=== PATIENT | female | born 1965 | race Two or more races ===

== ENCOUNTER 2021-01-24 08:31 | Emergency (ER) | payer OTHER, SELFPAY ==
--- NOTE | ~2021-01-24 | XR_ITS ---
EXAMINATION: XR CHEST CLINICAL INFORMATION: Weakness and chills. COMPARISON: None TECHNIQUE: 2 views of the chest were obtained. FINDINGS: The lungs are well-expanded with patchy opacity lingula consistent with developing infiltrate. Rest of lungs are clear. The heart size and pulmonary vascularity is normal. No gross bony abnormality. XR/XR chest 2V IMPRESSION: Developing infiltrate in the lingula. No acute process seen.
[2021-01-24 08:55] VITALS: BP 119/47; PULSE 93; RESP 16; TEMP 36.6; O2SAT 96; BMI 32.8
--- NOTE | 2021-01-24 09:15 | ED_ITS ---
HPI - General Adult General Chief complaint: General Medical Stated complaint: weakness Time Seen by Provider: 01/24/21 09:01 Source: patient Mode of arrival: ambulatory Limitations: no limitations History of Present Illness HPI narrative: 55-year-old female with a past medical history of hypothyroidism here with complaints of generalized weakness, body aches, chills, headache, nausea x2 weeks. Prior to this her daughter was COVID positive but she has had 3 subsequent tests which have been negative. No vomiting, diarrhea, abdominal pain, shortness of breath or cough Related Data Previous Rx's Medication Instructions Recorded levothyroxine 88 mcg tablet 88 mcg PO DAILY 30 Days #30 tab 06/25/20 ibuprofen 800 mg tablet 800 mg PO TID #90 tab 10/18/20 acetaminophen [Tylenol] 650 mg PO Q6H PRN #30 cap 01/24/21 doxycycline monohydrate 100 mg PO BID 7 Days #14 cap 01/24/21 ibuprofen 600 mg PO Q8H PRN #30 tab 01/24/21 Allergies Allergy/AdvReac Type Severity Reaction Status Date / Time oxybutynin [OXYBUTYNIN] Allergy Severe TACHYCARDIA Unverified 05/19/20 18:22 ,FLUSHING,S OB Review of Systems Review of Systems: Yes all other systems are reviewed and are negative Constitutional: Constitutional: Reports no additional constitutional complaints, Reports body ache(s), Reports chills, Denies fever(s), Reports heada brigitte(s) and Reports weakness Eyes: Eyes: Reports no additional eye complaints and Denies change in vision ENT: Reports system reviewed and no additional complaints, except as documented, Denies dizziness, Reports headache(s), Denies nasal congestion, Denies nasal discharge and Denies neck pain Cardiovascular: Cardiovascular: Reports no additional cardiovascular complaints, Denies chest pain, Denies leg edema and Denies dyspnea Respiratory: Respiratory: Reports no additional respiratory complaints, Denies cough and Denies dyspnea Gastrointestinal: Gastrointestinal: Reports no additional gastrointestinal complaints, Denies abdominal pain, Denies diarrhea, Reports nausea and Denies vomiting Genitourinary: Genitourinary: Reports no additional female genitourinary com plaints and Denies urinary incontinence Musculoskeletal: Musculoskeletal: Reports no additional musculoskeletal complaints, Denies back pain, Denies arthralgias, Denies joint swelling, Denies neck pain, Denies numbness and Denies tingling Integumentary/Breasts: Skin/Breast: Reports system reviewed and no additional complaints, except as docu and Denies rash Neurologic: Reports system reviewed and no additional complaints, except as documented, Denies Abnormal speech present, Denies dizziness, Reports headache(s), Denies numbness, Denies tingling and Reports weakness PMFSH Past Medical History Attestation statement: The following information was validated with the patient. Source: old records reviewed and nursing notes reviewed Medical History Thyroid disease Social History Social History Alcohol intake: never Smoking Status: Never smoker Use of substances other than those prescribed or required for medical reasons: No Advance Directives: No Advance Directives Information Provided: No Patient : No Physical Exam Vital Signs: Vital Signs: Last Vital Signs Temp 97.8 F 01/24/21 08:55 Pulse 85 01/24/21 10:23 Resp 16 01/24/21 08:55 BP 115/58 L 01/24/21 10:23 Pulse Ox 96 01/24/21 08:55 Body Mass Index 32.8 Const: General: cooperative, healthy appearing, comfortable and no acute distress Orientation/consciousness: patient oriented x3 Limitations: no l imitations HENMT: Head: Yes normal to inspection Ears: hearing grossly normal bilaterally General nose exam: Normal external nose present Face and sinus: Yes normal facial exam Mouth: Normal oral and palatal mucosa present Throat: Yes posterior oropharynx normal Eyes: General: appearance normal, both eyes and all related structures Pupils: Equal, round and reactive pupils present Neck: Neck: Yes normal visual inspection Chest: Chest palpation & inspection: normal inspection of the chest Resp: Effort & Inspection: normal respiratory effort Auscultation: clear to auscultation bilaterally Cardio: Rate: regular rate Rhythm: regular rhythm Peripheral pulses: Peripheral pulses 2+ throughout GI: Inspection: Yes normal to inspection Palpation (GI): Soft to palpation and nontender Auscultation: normal bowel sounds Back/Spine/Pelvis: Thoracic/Lumbar Spine: thoracic and lumbar spine normal to inspection Skin: General skin exam: no rashes or lesions noted Neuro: General: patient oriented x3, no focal motor deficits and normal sensation to monofilament Cranial nerves: Yes Equal, round and reactive pupils present Cognition (Neuro): normal cognition Speech: No Abnormal speech present Gait exam (Neuro): Normal gait present Motor exam (neuro): 5/5 motor strength present throughout Extrem: General: Yes normal to inspection, Yes no pedal edema and Yes no calf tenderness Course Course Course Narrative: 55-year-old female here with complaints of generalized weakness, body aches, chills, headache, nausea x2 weeks. Multiple COVID test which were negative. Daughter at home did have COVID. Will need COVID screen, labs, chest x-ray, UA 1200-labs show mild leukopenia. Chest x-ray consistent with a infiltrate. All other labs, COVID screen and urine negative. Patient has no shortness of breath or chest pain. She has an oxygen saturation greater than 98%. Will send home with course of antibiotics. Reviewed worrisome signs and symptoms of when to return to the emergency department. Comfortable discharge home. We discussed repeat CBC by her primary care doctor in a few weeks Medical Decision Making MDM Narrative Medical decision making narrative: Pneumonia, UTI, viral syndrome, COVID-19 infection Medical Records Medical records reviewed: Yes I reviewed the patient's medical records. Lab Data Lab results reviewed: Yes I reviewed the patient's lab results. Result diagrams: 01/24/21 09:45 01/24/21 09:45 Labs: Lab Results 01/24/21 01/24/21 01/24/21 Range/Units 09:15 09:45 09:45 WBC 3.8 L (4.8-10.8) X10*3/uL RBC 4.21 (4.20-5.50) X10*6/uL Hgb 11.3 L (12.0-16.0) g/dl Hct 36.2 L (37-47) % MCV 86.0 (80-98) fL MCH 26.8 L (27.0-33.0) pg MCHC 31.2 (31.0-35.0) g/dl RDW 13.3 (11.0-16.0) % Plt Count 196 (160-400) X10*3/uL MPV 10.0 (9.4-12.3) fL Immature Gran % (Auto) 0.3 (0.0-0.4) % Neut % (Auto) 57.3 (45-73) % Lymph % (Auto) 30.8 (20-40) % [place] % (Auto) 11.1 H (2-11) % Eos % (Auto) 0.0 (0-4) % Baso % (Auto) 0.5 (0-2) % Lymph # (Auto) 1.2 (1.2-4.9) X10*3/uL [place] # (Auto) 0.4 (0.1-1.2) X10*3/uL Eos # (Auto) 0.0 (0.0-0.4) X10*3/uL Baso # (Auto) 0.0 (0.0-0.2) X10*3/uL Abs Immat Gran (auto) 0.01 (0.00-0.03) X10*3/uL Absolute Neuts (auto) 2.2 (2.0-8.3) X10*3/uL Absolute Nucleated RBC 0.000 (0.0-0.012) X10*3/uL Nucleated RBC % (auto) 0.0 (0.0-0.2) /100WBC Sodium 135 (135-145) mmol/L Potassium 3.7 (3.3-5.1) mmol/L Chloride 101 (96-108) mmol/L Carbon Dioxide 26 (22-29) mmol/L Anion Gap 12 (12-20) BUN 15 (9-16) mg/dL Creatinine 0.71 (0.5-1.4) mg/dL Estim Creat Clear Calc 92.9 Estimated GFR > 60 Random Glucose 98 (60-115) mg/dL Calcium 8.7 (8.4-10.2) mg/dL Magnesium 2.0 (1.6-2.6) mg/dL Total Bilirubin 0.7 (0.0-1.0) mg/dL Direct Bilirubin 0.2 (0.0-0.5) mg/dL AST 38 H (5-31) U/L ALT 41 H (0-31) U/L Alkaline Phosphatase 80 (39-117) U/L Total Creatine Kinase 193 H (26-140) U/L Total Protein 7.1 (6.5-8.0) g/dL Albumin 3.9 (3.5-5.0) g/dL Urine Color Urine Appearance Urine pH (5.0-8.0) Ur Specific [place] (1.005-1.025) Urine Protein (NEG-TRACE) MG/DL Urine Glucose (UA) (NEG) MG/DL Urine Ketones (NEG) MG/DL Urine Blood (NEG) Urine Nitrite (NEG) Ur Leukocyte Esterase (NEG) COVID-19 (SERGIO) Negative (Negative) COVID-19 Clin Com See Note 01/24/21 Range/Units 11:29 WBC (4.8-10.8) X10*3/uL RBC (4.20-5.50) X10*6/uL Hgb (12.0-16.0) g/dl Hct (37-47) % MCV (80-98) fL MCH (27.0-33.0) pg MCHC (31.0-35.0) g/dl RDW (11.0-16.0) % Plt Count (160-400) X10*3/uL MPV (9.4-12.3) fL Immature Gran % (Auto) (0.0-0.4) % Neut % (Auto) (45-73) % Lymph % (Auto) (20-40) % [place] % (Auto) (2-11) % Eos % (Auto) (0-4) % Baso % (Auto) (0-2) % Lymph # (Auto) (1.2-4.9) X10*3/uL [place] # (Auto) (0.1-1.2) X10*3/uL Eos # (Auto) (0.0-0.4) X10*3/uL Baso # (Auto) (0.0-0.2) X10*3/uL Abs Immat Gran (auto) (0.00-0.03) X10*3/uL Absolute Neuts (auto) (2.0-8.3) X10*3/uL Absolute Nucleated RBC (0.0-0.012) X10*3/uL Nucleated RBC % (auto) (0.0-0.2) /100WBC Sodium (135-145) mmol/L Potassium (3.3-5.1) mmol/L Chloride (96-108) mmol/L Carbon Dioxide (22-29) mmol/L Anion Gap (12-20) BUN (9-16) mg/dL Creatinine (0.5-1.4) mg/dL Estim Creat Clear Calc Estimated GFR Random Glucose (60-115) mg/dL Calcium (8.4-10.2) mg/dL Magnesium (1.6-2.6) mg/dL Total Bilirubin (0.0-1.0) mg/dL Direct Bilirubin (0.0-0.5) mg/dL AST (5-31) U/L ALT (0-31) U/L Alkaline Phosphatase (39-117) U/L Total Creatine Kinase (26-140) U/L Total Protein (6.5-8.0) g/dL Albumin (3.5-5.0) g/dL Urine Color YELLOW Urine Appearance CLEAR Urine pH 6.0 (5.0-8.0) Ur Specific [place] 1.025 (1.005-1.025) Urine Protein NEG (NEG-TRACE) MG/DL Urine Glucose (UA) NEG (NEG) MG/DL Urine Ketones 40 (NEG) MG/DL Urine Blood NEG (NEG) Urine Nitrite NEG (NEG) Ur Leukocyte Esterase NEG (NEG) COVID-19 (SERGIO) (Negative) COVID-19 Clin Com Imaging Data Chest x-ray: Attestation: I personally reviewed and interpreted this imaging study as follows: Radiologist's impression: EXAMINATION: XR CHEST CLINICAL INFORMATION: Weakness and chills. COMPARISON: None TECHNIQUE: 2 views of the chest were obtained. FINDINGS: The lungs are well-expanded with patchy opacity lingula consistent with developing infiltrate. Rest of lungs are clear. The heart size and pulmonary vascularity is normal. No gross bony abnormality. XR/XR chest 2V IMPRESSION: Developing infiltrate in the lingula. No acute process seen. Discharge Plan Discharge Clinical Impression: Pneumonia Patient Disposition: Home, Self-Care Instructions: Bacterial Pneumonia (ED) Additional Instructions: Increase fluids, rest Your white blood cell count was mildly decreased today. Get it rechecked by her primary care doctor in a few weeks Prescriptions: New doxycycline monohydrate 100 mg capsule 100 mg PO BID 7 Days Qty: 14 RF: 0 acetaminophen [Tylenol] 325 mg capsule 650 mg PO Q6H PRN (Reason: fever or pain) Qty: 30 RF: 0 ibuprofen 600 mg tablet 600 mg PO Q8H PRN (Reason: fever or pain) Qty: 30 RF: 0 No Action levothyroxine 88 mcg tablet 88 mcg PO DAILY 30 Days Qty: 30 RF: 6 ibuprofen 800 mg tablet 800 mg PO TID Qty: 90 RF: 3 Referrals: Flori Mejia MD [Primary Care Provider] - 2 days Interventions: ED Discharge Assessment Last Done: 01/24/21 11:50 Discharge Date/Time: 01/24/21 11:51 Print Language: Upper Sorbian
[2021-01-24 09:36] LABS: COVID-19 Test Negative (Negative)
[2021-01-24 09:56] LABS: MANUAL DIFF FLAG NO
[2021-01-24 10:01] LABS: Basophils Percent Auto 0.5 % (0-2); Hematocrit 36.2 % (37-47); Hemoglobin 11.3 g/dl (12.0-16.0); Imm Gran Abs Auto 0.01 X10*3/uL (0.00-0.03); Imm Gran Pct Auto 0.3 % (0.0-0.4); Lymphocytes Absolute Auto 1.2 X10*3/uL (1.2-4.9); Lymphocytes Percent Auto 30.8 % (20-40); Mean Corpuscular HGB Conc 31.2 g/dl (31.0-35.0); Mean Corpuscular Hemoglobin 26.8 pg (27.0-33.0); Monocytes Absolute Auto 0.4 X10*3/uL (0.1-1.2); Monocytes Percent Auto 11.1 % (2-11); Neutrophils Absolute Auto 2.2 X10*3/uL (2.0-8.3); Neutrophils Percent Auto 57.3 % (45-73); Platelet Count 196 X10*3/uL (160-400); Red Blood Count 4.21 X10*6/uL (4.20-5.50); Red Cell Distribution Width 13.3 % (11.0-16.0); White Blood Count 3.8 X10*3/uL (4.8-10.8)
[2021-01-24 10:22] VITALS: BP 105/65; BP 108/60; PULSE 75; PULSE 78
[2021-01-24 10:23] VITALS: BP 115/58; PULSE 85
[2021-01-24 10:33] LABS: Alanine Aminotransferase 41 U/L (0-31); Albumin Level 3.9 g/dL (3.5-5.0); Alkaline Phosphatase 80 U/L (39-117); Anion Gap 12 (12-20); Aspartate Amino Transferase 38 U/L (5-31); Bilirubin Direct 0.2 mg/dL (0.0-0.5); Bilirubin Total 0.7 mg/dL (0.0-1.0); Blood Urea Nitrogen 15 mg/dL (9-16); Calcium 8.7 mg/dL (8.4-10.2); Carbon Dioxide 26 mmol/L (22-29); Chloride 101 mmol/L (96-108); Creatinine Clr Calc Pharmacy 92.9; Estimated Glomerular Filt Rate > 60; Glucose Random 98 mg/dL (60-115); Potassium 3.7 mmol/L (3.3-5.1); Sodium 135 mmol/L (135-145); Total Protein 7.1 g/dL (6.5-8.0)
[2021-01-24 11:37] LABS: Appearance Urine CLEAR; Color Urine YELLOW; Glucose Urine UA NEG (NEG); Leukocyte Esterase Urine NEG (NEG); Nitrite Urine NEG (NEG); Specific Gravity - Urine 1.025 (1.005-1.025); Urine Blood NEG (NEG); Urine Ketones 40 MG/DL (NEG); Urine Protein NEG (NEG-TRACE)
== END 2021-01-24 11:51 | disposition home or self-care (01) ==
PROVIDERS: Nurse Practitioner Family; Emergency Provider Emergency Medicine; PCP Internal Medicine
DX: J18.9 Pneumonia, unspecified organism (principal); R53.1 Weakness; Z20.822 Contact with and (suspected) exposure to COVID-19
CPT/HCPCS: 36415; 71046; 80048; 80076; 81003; 82550; 83735; 85025; 87635; 99284

== ENCOUNTER 2021-01-26 21:50 | Emergency (ER) | payer OTHER, SELFPAY ==
[2021-01-26 21:56] VITALS: BP 112/49; PULSE 77; RESP 18; TEMP 36.7; O2SAT 96; BMI 24.4
--- NOTE | 2021-01-26 23:21 | ED.NAVMDI ---
HPI - Nausea/Vomiting/Diarrhea General Chief complaint: Nausea/Vomiting/Diarrhea Stated complaint: nausea Time Seen by Provider: 01/26/21 23:20 Source: patient Mode of arrival: ambulatory Limitations: no limitations History of Present Illness HPI Narrative: Patient was seen here 3 days ago and diagnosed with early pneumonia and started on doxycycline since then she complaining of stomach upset and vomiting also complaining of headache no fever still coughing a lot no shortness of breath Related Data Previous Rx's Medication Instructions Recorded ibuprofen 800 mg tablet 800 mg PO TID #90 tab 10/18/20 acetaminophen [Tylenol] 650 mg PO Q6H PRN #30 cap 01/24/21 doxycycline monohydrate 100 mg PO BID 7 Days #14 cap 01/24/21 ibuprofen 600 mg PO Q8H PRN #30 tab 01/24/21 amoxicillin-pot clavulanate 1 tab PO BID #20 tab 01/27/21 [Augmentin] codeine-guaifenesin 10 ml PO Q4-6H PRN #120 ml 01/27/21 ondansetron 4 mg PO Q6-8H PRN #10 tab 01/27/21 levothyroxine 88 mcg tablet 88 mcg PO DAILY 30 Days #30 tab 02/02/21 Allergies Allergy/AdvReac Type Severity Reaction Status Date / Time oxybutynin [OXYBUTYNIN] Allergy Severe TACHYCARDIA Verified 01/26/21 21:56 ,FLUSHING,S OB Review of Systems Review of Systems: Constitutional : No Weight loss, No Fever, No Chills ENT/Mouth : No sore throat, No Rhinorrhea Eyes: No Eye Pain, No Swelling Cardiovascular : No Chest Pain, no palpitations Respiratory :+ Cough, No Sputum, no shortness of breath Gastrointestinal : + Nausea, +Vomiting, No Diarrhea, No abdominal Pain, no black stools Genitourinary : No Dysuria, No Urinary Frequency Musculoskeletal : No joint pain, No Myalgias, No Joint Swelling Skin : No Skin Lesions, No rash Neuro : No Weakness, No Numbness, No Dizziness, No Headache Psych : No Anxiety/Panic, No Depression Heme/Lymph: No Bruising, No Lymphadenopathy Endocrine : No Polyuria, No Polydipsia All other systems reviewed and are negative PMFSH Past Medical History Medical History Thyroid disease Social History Social History Alcohol intake: never Advance Directives: No Advance Directives Information Provided: No Patient : No Physical Exam Vital Signs: Vital Signs: Last Vital Signs Temp 98.0 F 01/26/21 21:56 Pulse 66 01/26/21 23:55 Resp 20 01/26/21 23:55 BP 107/62 01/26/21 23:55 Pulse Ox 95 01/26/21 23:55 Body Mass Index 24.4 Appearance: Alert. Oriented X3. No acute distress. Eyes: PERRLA, No Nystagmus ENT: Pharynx normal. Oral Mucosa moist Neck: Normal inspection. Neck supple. CVS: Normal heart rate and rhythm. Pulses normal. Respiratory: No respiratory distress. Equal air entry bilateral, no wheezing/rales/rhonchi Abdomen: Soft and nontender. Bowel sounds are present, no mass palpable, no CVA tenderness Skin: Skin warm and dry. Normal skin color. Normal skin turgor. Extremities: No lower extremity edema. No calf tenderness Neuro: Oriented X 3. No motor deficit. No sensory deficit MDM - Nausea/Vomiting/Diarrhea MDM Narrative Medical decision making narrative: Patient's symptoms likely from doxycycline will change to Augmentin Discharge Plan Discharge Clinical Impression: Acute bronchitis Qualifiers: Bronchitis organism: unspecified organism Qualified Code(s): J20.9 - Acute bronchitis, unspecified Vomiting Qualifiers: Vomiting type: unspecified Vomiting Intractability: non-intractable Nausea presence: with nausea Qualified Code(s): R11.2 - Nausea with vomiting, unspecified Patient Disposition: Home, Self-Care Instructions: Acute Bronchitis (ED), Acute Nausea and Vomiting (ED) Additional Instructions: Take medication as advised for the nausea, stop doxycycline and that may be contributing to vomiting start Augmentin as prescribed and use inhaler 2-4 puffs every 6 hours as needed for increased cough Cough syrup as advised Prescriptions: New ondansetron 4 mg tablet,disintegrating 4 mg PO Q6-8H PRN (Reason: Vomiting) Qty: 10 RF: 0 amoxicillin-pot clavulanate [Augmentin] 875-125 mg tablet 1 tab PO BID Qty: 20 RF: 0 codeine-guaifenesin 10-100 mg/5 mL liquid 10 ml PO Q4-6H PRN (Reason: cough) Qty: 120 RF: 0 No Action ibuprofen 800 mg tablet 800 mg PO TID Qty: 90 RF: 3 levothyroxine 88 mcg tablet 88 mcg PO DAILY 30 Days Qty: 30 RF: 6 doxycycline monohydrate 100 mg capsule 100 mg PO BID 7 Days Qty: 14 RF: 0 acetaminophen [Tylenol] 325 mg capsule 650 mg PO Q6H PRN (Reason: fever or pain) Qty: 30 RF: 0 ibuprofen 600 mg tablet 600 mg PO Q8H PRN (Reason: fever or pain) Qty: 30 RF: 0 Stand Alone Forms: Work/School Release Interventions: ED Discharge Assessment Last Done: 01/27/21 00:23 Discharge Date/Time: 01/27/21 00:23
[2021-01-26] MEDS: Albuterol Sulfate 90 MCG 8 GM INHALER 4 PUFF INHALE (23:50)
[2021-01-26] MEDS: Amoxicillin/Potassium Clav 875 MG TABLET PO (23:51)
[2021-01-26 23:55] VITALS: BP 107/62; PULSE 66; RESP 20; O2SAT 95
== END 2021-01-27 00:23 | disposition home or self-care (01) ==
PROVIDERS: Emergency Provider Internal Medicine; PCP Internal Medicine
DX: R11.0 Nausea (principal)
CPT/HCPCS: 99284

== ENCOUNTER 2021-10-11 09:28 | Outpatient (REF) | payer OTHER, SELFPAY ==
[2021-10-11 10:01] LABS: MANUAL DIFF FLAG NO
[2021-10-11 10:26] LABS: Basophils Percent Auto 0.5 % (0-2); Eosinophils Absolute Auto 0.1 X10*3/uL (0.0-0.4); Eosinophils Percent Auto 1.9 % (0-4); Hemoglobin 12.3 g/dl (12.0-16.0); Imm Gran Abs Auto 0.01 X10*3/uL (0.00-0.03); Imm Gran Pct Auto 0.2 % (0.0-0.4); Lymphocytes Absolute Auto 2.4 X10*3/uL (1.2-4.9); Lymphocytes Percent Auto 37.7 % (20-40); Mean Corpuscular HGB Conc 30.8 g/dl (31.0-35.0); Mean Corpuscular Hemoglobin 26.6 pg (27.0-33.0); Mean Corpuscular Volume 86.4 fL (80.0-98.0); Mean Platelet Volume 10.1 fL (9.4-12.3); Monocytes Absolute Auto 0.7 X10*3/uL (0.1-1.2); Monocytes Percent Auto 10.1 % (2-11); Neutrophils Absolute Auto 3.2 x10*3/uL (2.0-8.3); Neutrophils Percent Auto 49.6 % (45-73); Platelet Count 336 X10*3/uL (160-400); Red Blood Count 4.63 X10*6/uL (4.20-5.50); Red Cell Distribution Width 13.5 % (11.0-16.0); White Blood Count 6.4 X10*3/uL (4.8-10.8)
[2021-10-11 13:09] LABS: TSH reflex Free T4 0.21 uIU/mL (0.32-4.0)
[2021-10-11 13:23] LABS: Alanine Aminotransferase 32 U/L (0-31); Albumin Level 4.1 g/dL (3.5-5.0); Alkaline Phosphatase 94 U/L (39-117); Anion Gap 12 (12-20); Aspartate Amino Transferase 30 U/L (5-31); Bilirubin Total 0.8 mg/dL (0.0-1.0); Carbon Dioxide 26 mmol/L (22-29); Chloride 108 mmol/L (96-108); Cholesterol 264 mg/dL; Estimated Glomerular Filt Rate > 60; Glucose Fasting 94 mg/dL (60-99); HDL Cholesterol 44 mg/dL; LDL Cholesterol Calculated 168 mg/dl; Potassium 4.6 mmol/L (3.3-5.1); Sodium 141 mmol/L (135-145); Total Protein 7.7 g/dL (6.5-8.0); Triglycerides 264 mg/dL
[2021-10-11 15:25] LABS: Estimated Average Glucose 120 mg/dL; Hemoglobin A1c % 5.8 %
[2021-10-11 15:36] LABS: Blood Urea Nitrogen 16 mg/dL (9-16); Calcium 10.3 mg/dL (8.4-10.2)
[2021-10-11 15:48] LABS: Free T4 (Free Thyroxine) 1.14 ng/dL (0.71-1.85)
[2021-10-11 23:26] LABS: Folate 17.8 ng/mL (> or = 4.0); Vitamin B12 962 pg/mL (200-900)
[2021-10-17 12:26] LABS: Vitamin D 25-OH, D2 6 ng/mL; Vitamin D 25-OH, D3 24 ng/mL; Vitamin D 25-OH, Total 30 ng/mL (30-100)
== END 2021-10-11 09:29 | disposition home or self-care (01) ==
LOC: HO.LAB 09:28
PROVIDERS: PCP Internal Medicine; Visit Provider Nurse Practitioner Acute Care
DX: E03.9 Hypothyroidism, unspecified (principal)
CPT/HCPCS: 36415; 80053; 80061; 82306; 82607; 82746; 83036; 84439; 84443; 85025

== ENCOUNTER → 2021-10-17 13:42 | Outpatient (BNVA) | payer OTHER, SELFPAY | PROVIDERS: PCP Internal Medicine; Visit Provider Orthopaedic Surgery | DX: M65.311 Trigger thumb, right thumb (principal) | CPT/HCPCS: 20550; 99202; J1100 ==

== ENCOUNTER 2023-08-06 12:40 | Emergency (ER) | payer SELFPAY ==
--- NOTE | ~2023-08-06 | XR_ITS ---
EXAMINATION: XR KNEE, LEFT CLINICAL INFORMATION: Anterior knee pain COMPARISON: None available. TECHNIQUE: Four views of the left knee. FINDINGS: No fracture or joint effusion. Alignment is anatomic. Joint spaces are maintained. No abnormal soft tissue calcification. XR/XR knee LT 3V IMPRESSION: Normal left knee.
--- NOTE | 2023-08-06 13:40 | ED.GENADULT ---
HPI - General Adult General Chief complaint: Extremity Injury, Lower Stated complaint: L knee pain Time Seen by Provider: 08/06/23 20:11 Source: patient Mode of arrival: ambulatory Limitations: no limitations History of Present Illness HPI narrative: Patient is a 58-year-old female who presents emergency department for evaluation of acute on chronic left knee pain. Progressively worsening over the past 2 days about any obvious injury. Described as an aching pain with intermittent burning sensation. Denies any redness or swelling. Denies numbness or tingling to the lower extremity. No calf pain. No personal history of DVT/PE. She typically takes ibuprofen 100 mg orally for her bilateral knee pain. She did not take this today. Related Data Previous Rx's Medication Instructions Recorded acetaminophen 325 mg capsule 650 mg (2 x 325 mg) PO Q6H PRN 01/24/21 (Tylenol) fever or pain #30 caps ibuprofen 600 mg tablet 600 mg PO Q8H PRN fever or pain 01/24/21 #30 tabs ondansetron 4 mg disintegrating 4 mg PO Q6-8H PRN Vomiting #10 tabs 01/27/21 tablet dexamethasone 4 mg tablet 4 mg PO .COMPLEX #18 tabs 05/19/21 butalbital 50 mg-acetaminophen 300 1 cap PO .6H PRN pain #10 caps 09/26/21 mg-caffeine 40 mg-codeine 30 mg cap (Fioricet with Codeine) hydroxyzine HCl 25 mg tablet 25 mg PO TID PRN anxiety #21 tabs 09/26/21 ibuprofen 800 mg tablet 800 mg PO TID #90 tabs 02/10/23 levothyroxine 88 mcg tablet 88 mcg PO DAILY 30 days #30 tabs 07/26/23 Allergies Allergy/AdvReac Type Severity Reaction Status Date / Time oxybutynin [OXYBUTYNIN] Allergy Severe TACHYCARDIA Verified 10/17/21 13:56 ,FLUSHING,S OB Review of Systems Review of Systems: Yes all other systems are reviewed and are negative PMFSH Past Medical History Attestation statement: The following information was validated with the patient. Source: old records reviewed Medical History Thyroid disease Social History Social History Housing: Apartment Alcohol intake: never Patient Tobacco Use Status: Never used Tobacco Second Hand Smoke Exposure: No Advance Directives: No Advance Directives Information Provided: No service: No Current occupational status: employed 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rt hand Physical Exam ED Vital Signs: Vital Signs - 24 hr 08/06/23 13:42 Temperature 97.9 F Pulse Rate 85 Respiratory Rate 18 Blood Pressure 137/52 L Pulse Oximetry 97 Oxygen Delivery Method Room Air BMI result Body Mass Index 31.7 Appearance: Alert.?Oriented to person, place and time. No acute distress.?Normal affect. Neck: Normal inspection.? Neck supple.?? CVS: Heart sounds normal. Normal heart rate and rhythm.? Pulses normal.?? Respiratory: No respiratory distress.? Lung sounds clear to auscultation bilaterally?? Abdomen: Soft and non-tender. Normoactive bowel sounds. Skin: Skin warm and dry.? Normal skin color.? Extremities: No lower extremity edema.? No calf ttp. Left knee without effusion. No erythema or warmth. No laxity upon examination. 2+ DP/PT pulse bilaterally. Neuro: Moves all extremities spontaneously. Sensation intact bilaterally. No focal neuro deficits. Ambulates with normal steady gait. Course Course Course Narrative: This is a rapid medical exam: Additional HPI, ROS, PE not included below will be deferred to primary provider. Patient is a 58-year-old female presenting to the ED with complaint of left knee pain for the past 2 days. States she typically has pain to this knee but it has worsened. Describes pain as a burning sensation, denies redness or swelling. Took ibuprofen at home with little relief. Denies fall or other trauma. Unable to visualize in triage due to type of pants patient is wearing. Plan: x-ray Medical Decision Making Medical Decision Making MDM Narrative: Patient is a 58-year-old female who presents to the emergency department for evaluation of acute on chronic left knee pain. Progressive increase over the past few days without acute injury. The no laxity upon examination. No swelling, erythema, warmth. No rashes. No lesions. Fully weight-bearing. Ambulatory with a steady gait. XR is without acute etiology. At this time feel that she is stable for discharge home, outpatient follow-up with PCP/Orthopedics, rest, ice, Moe bandage for compression, elevation, acetaminophen/ibuprofen for pain. Reviewed worrisome signs and symptoms that would warrant re-evaluation emergency department. All questions answered. Stable for discharge. Differential Diagnosis Differential Diagnoses: The differential diagnosis associated with the presentation includes (osteoarthritis, unlikely fracture/ dislocation, not consistent with septic arthritis, less likely gout.) Independent Interpretation I performed an independent interpretation of an: Plain X-Ray (I personally interpreted XR any and agree with radiologist impression.) Radiology Impression Discussion of test interpretation with radiology: I have reviewed the radiologist's reading. Radiologist Impression: XR/XR knee LT 3V IMPRESSION: Normal left knee. External Record Review External record reviewed: Prior outpatient labs Prescription Management I considered prescription management with: Pain Medication (Acetaminophen/ibuprofen) Discharge Plan Discharge Clinical Impression: Knee pain Patient Disposition: Home, Self-Care Instructions: Knee Pain (ED) Additional Instructions: You can take ibuprofen 200 mg, 3 tablets (600mg) every 6-8 hours as needed for pain, in addition to Tylenol 500 mg, 2 tablets (1,000mg) every 4-6 hours as needed for pain, but not to exceed 3 doses daily (3,000mg).? Please be sure to rest. Apply ice for 10-15 minutes 3-4 times daily. Use Moe bandage for compression. Elevate your leg above the level of your chest. Contact your primary care provider to arrange for a follow-up visit, the may consider a course of physical therapy and/or referral to Orthopedics. Prescriptions: No Action ibuprofen 800 mg tablet 800 mg PO TID Qty: 90 3RF levothyroxine 88 mcg tablet 88 mcg PO DAILY 30 Days Qty: 30 6RF ondansetron 4 mg tablet,disintegrating 4 mg PO Q6-8H PRN (Reason: Vomiting) Qty: 10 0RF acetaminophen [Tylenol] 325 mg capsule 650 mg PO Q6H PRN (Reason: fever or pain) Qty: 30 0RF ibuprofen 600 mg tablet 600 mg PO Q8H PRN (Reason: fever or pain) Qty: 30 0RF dexamethasone 4 mg tablet 4 mg PO .COMPLEX Qty: 18 0RF Rx Instructions: 4 mg PO; 1 p.o. t.i.d. x3 days, 1 p.o. b.i.d. x3 days, 1 p.o. daily x3 days hydroxyzine HCl 25 mg tablet 25 mg PO TID PRN (Reason: anxiety) Qty: 21 0RF [id number] [Fioricet with Codeine] [id number] mg capsule 1 cap PO .6H PRN (Reason: pain) Qty: 10 0RF Referrals: Flori Mejia MD [Primary Care Provider] -
[2023-08-06 13:42] VITALS: BP 137/52; PULSE 85; RESP 18; TEMP 36.6; O2SAT 97; BMI 31.7
[2023-08-06] MEDS: Ketorolac Tromethamine 30 MG/ML VIAL IM (21:03)
[2023-08-06 21:33] VITALS: BP 108/60; PULSE 69; RESP 18; O2SAT 97
== END 2023-08-06 21:37 | disposition home or self-care (01) ==
PROVIDERS: Emergency Provider Student in an Organized Health Care Education/Training Program; PCP Internal Medicine
DX: M25.562 Pain in left knee (principal); Z79.899 Other long term (current) drug therapy
CPT/HCPCS: 73562; 96372; 99284; J1885

== ENCOUNTER 2024-01-08 08:35 | Emergency (ER) | payer MEDICAID, SELFPAY ==
[2024-01-08 08:44] VITALS: BP 137/77; PULSE 70; RESP 16; TEMP 36.1; O2SAT 100; BMI 31.5
--- NOTE | 2024-01-08 09:54 | ED.GENADULT ---
HPI - General Adult General Chief complaint: Extremity Problem Stated complaint: R/L Knee Pain Time Seen by Provider: 01/08/24 09:54 Source: patient Mode of arrival: ambulatory Limitations: no limitations History of Present Illness HPI narrative: Patient is a 58 year old assigned female at with a history of KYLE, hypothyroidism, and chronic bilateral knee pain presenting to the emergency department today with acute on chronic bilateral knee pain with left worse than right. Patient states that she was removed from [place] and is in the process of being put back on it so she has not been able to follow up with an orthopedic provider. Patient states that both of her knees have hurt, left worse than right, for months and the left seems to be getting worse. Patient states that she has a previous surgery on the right knee. Patient denies any dizziness, lightheadedness, abdominal pain, nausea, vomiting, fever, chills, blurry vision, double vision, loss of vision, chest pain, difficulty breathing, shortness of breath, back pain, night sweats, pain with urination, increased urinary frequency, increased urinary urgency, blood in her urine or stool, syncope or a near syncopal episode, recent trauma or falls, bowel incontinence, bladder incontinence, bowel retention, bladder retention, or any other complaints at this time. Onset (ago): month(s) Location: left, right and lower extremity Radiation: non-radiation Severity: mild Severity scale (1-10): 4 Quality: aching and dull Pain Consistency: constant Relieving factors: none Exacerbating factors: none Associated symptoms: denies other symptoms Treatments prior to arrival: none Related Data Previous Rx's ?Medication ?Instructions ?Recorded acetaminophen 325 mg capsule 650 mg (2 x 325 mg) PO Q6H PRN 01/24/21 (Tylenol) fever or pain #30 caps ibuprofen 600 mg tablet 600 mg PO Q8H PRN fever or pain 01/24/21 #30 tabs ondansetron 4 mg disintegrating 4 mg PO Q6-8H PRN Vomiting #10 tabs 01/27/21 tablet dexamethasone 4 mg tablet 4 mg PO .COMPLEX #18 tabs 05/19/21 butalbital 50 mg-acetaminophen 300 1 cap PO .6H PRN pain #10 caps 09/26/21 mg-caffeine 40 mg-codeine 30 mg cap (Fioricet with Codeine) hydroxyzine HCl 25 mg tablet 25 mg PO TID PRN anxiety #21 tabs 09/26/21 levothyroxine 88 mcg tablet 88 mcg PO DAILY 30 days #30 tabs 07/26/23 ibuprofen 800 mg tablet 800 mg PO TID #90 tabs 11/04/23 prednisone 20 mg tablet 20 mg PO DAILY 7 days #7 tabs 01/08/24 Allergies Allergy/AdvReac Type Severity Reaction Status Date / Time oxybutynin [OXYBUTYNIN] Allergy Severe TACHYCARDIA Verified 01/08/24 08:45 ,FLUSHING,S OB Review of Systems Constitutional: Constitutional: Reports no additional constitutional complaints, Denies chills, Denies fever(s) and Denies night sweats Eyes: Eyes: Reports no additional eye complaints, Denies blurry vision, Denies change in vision, Denies diplopia, Denies eye discharge, Denies loss of vision and Denies eye pain ENT: Denies dizziness Cardiovascular: Cardiovascular: Reports no additional cardiovascular complaints, Denies chest pain, Denies lightheadedness, Denies Loss of Consciousness and Denies dyspnea Respiratory: Respiratory: Reports no additional respiratory complaints and Denies dyspnea Gastrointestinal: Gastrointestinal: Reports no additional gastrointestinal complaints, Denies abdominal pain, Denies melena, Denies hematochezia, Denies change in bowel habits and Denies change in stool character Genitourinary: Genitourinary: Denies hematuria, Denies urinary frequency, Denies dysuria, Denies urinary incontinence, Denies urinary hesitancy and Denies urinary urgency Musculoskeletal: Musculoskeletal: Reports no additional musculoskeletal complaints, Denies numbness and Denies tingling Comments: bilateral knee pain, left worse than right Neurologic: Denies dizziness, Denies loss of vision, Denies numbness and Denies tingling Psychiatric: Psychiatric: Reports no additional psychiatric complaints Endocrine: Endocrine: Reports no additional endocrine complaints Hematologic/Lymphatic: Hematologic/Lymphatic: Reports no additional hematologic/lymphatic complaints Allergic/Immunologic: Allergic/Immunologic: Reports no additional allergic/immunologic complaints PMFSH Past Medical History Attestation statement: The following information was validated with the patient. Source: old records reviewed and nursing notes reviewed Medical History Thyroid disease Social History Social History Housing: Apartment Alcohol intake: never Patient Tobacco Use Status: Never used Tobacco Smoked in Last 30 Days: No Second Hand Smoke Exposure: No Use of substances other than those prescribed or required for medical reasons: No Advance Directives: No service: No Current occupational status: employed 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rt hand Physical Exam ED Vital Signs: Vital Signs - 24 hr 01/08/24 08:44 01/08/24 10:15 Temperature 96.9 F 96.9 F Pulse Rate 70 70 Respiratory Rate 16 16 Blood Pressure 137/77 137/77 Pulse Oximetry 100 100 Oxygen Delivery Method Room Air Room Air BMI result Body Mass Index 31.5 Const General: cooperative, no acute distress, alert and awake Nutritional Appearance: well nourished Orientation/consciousness: patient oriented x3 Limitations: no limitations HENMT Head: Yes normal to inspection and Yes atraumatic Ears: hearing grossly normal bilaterally and external ears normal General nose exam: Normal external nose present, no nasal discharge noted and no epistaxis Face and sinus: Yes normal facial exam, No abrasion and No laceration Mouth: Normal oral and palatal mucosa present, no drooling and no muffled voice Eyes General: appearance normal, both eyes and all related structures Periorbital: periorbital findings normal Eyelids: Yes eyelids normal Conjunctivae: conjunctivae normal Pupils: Equal, round and reactive pupils present EOM: EOMs intact bilaterally Neck Neck: Yes normal visual inspection, Yes full ROM and Yes no lymphadenopathy Chest Chest palpation & inspection: normal inspection of the chest Resp Effort & Inspection: normal respiratory effort and able to speak in complete sentences GI Inspection: Yes normal to inspection Neuro General: patient oriented x3 and moves all extremities Cranial nerves: Yes Equal, round and reactive pupils present Cognition (Neuro): normal cognition Motor exam (neuro): 5/5 motor strength present throughout Sensory Exam: Normal double simultaneous stimulation for sensation Coordination: [id number] test normal Extrem General: Yes normal to inspection, Yes full ROM and Yes capillary refill normal Psych Appearance: grossly normal Mental Status: mental status grossly normal Affect: normal affect Attitude: cooperative Thought process: Normal thought process present Thought content: Normal thought content present Insight: Good insight present (Psych) Medications Administered Discontinued Medications Generic Name Dose Route Start Last Admin Trade Name Freq PRN Reason Stop Dose Admin Ketorolac Tromethamine 15 mg 01/08/24 09:58 01/08/24 10:07 Ketorolac Tromethamine 15 Mg/Ml Vial IM 01/08/24 09:59 15 mg ONCE ONE Administration Prednisone 20 mg 01/08/24 09:58 01/08/24 10:06 Prednisone 20 Mg Tablet PO 01/08/24 09:59 20 mg ONCE ONE Administration Procedures Orthopedic Splinting/Casting Injury #1: Side: left Lower Extremity Injury Location: knee Lower Extremity Immobilizer: Moe wrap Medical Decision Making Medical Decision Making MDM Narrative: Patient is a 58 year old assigned female at with a history of KYLE and chronic bilateral knee pain presenting to the emergency department today with acute on chronic knee pain. Patient's physical exam was unremarkable. I explained my physical exam findings to the patient. I answered all questions asked by the patient. Patient received PO Prednisone and IM Toradol which she stated helped her symptoms significantly. Patient's left knee was wrapped in an MOE wrap, without incident. Patient's PMS was intact prior to and after MOE placement. I stressed the importance of the patient taking her medication as prescribed. I stressed the importance of the patient following up with her primary care provider and an orthopedic provider. I stressed the importance of the patient returning to the emergency department immediately if her symptoms were to worsen or if she were to develop any dizziness, shortness of breath, difficulty breathing, chest pain, blurry vision, loss of vision, nausea, vomiting, abdominal pain, fever, chills, back pain, or any other complaints. Patient verbalized agreement and understanding with this treatment plan and discharge. Differential Diagnosis Differential Diagnoses: The differential diagnosis associated with the presentation includes Osteoarthritis Acute on chronic knee pain Knee pain Admission/Observation Consideration of admission/observation: Escalation of care including admission/observation considered Patient would have been admitted to the hospital had her clinical presentation warranted hospital admission. Tests considered The following testing was considered but not selected: I considered obtaining an x-ray of the bilateral knees however, given the patient's current clinical presentation and lack of mechanism of injury, this was not necessary. I discussed this with the patient who verbalized understanding and agreement. Prescription Management I considered prescription management with: Other (patient prescribed oral prednisone for left knee pain) Critical Care Time Critical Care Time Critical Care Time: Yes Total Critical Care Time: 44 Attestation: I spent 44 minutes of Critical Care Time with this patient. This does not include time spent on separately reported billable procedures. Discharge Plan Discharge Clinical Impression: Osteoarthritis, Acute knee pain Patient Disposition: Home, Self-Care Instructions: Osteoarthritis (DC), Knee Pain (ED) Additional Instructions: Follow up with your primary care provider and an orthopedic provider. Return to the emergency department immediately if your symptoms worsen or if you develop any dizziness, shortness of breath, difficulty breathing, chest pain, blurry vision, loss of vision, nausea, vomiting, abdominal pain, fever, chills, back pain, or any other complaints. Prescriptions: New prednisone 20 mg tablet 20 mg PO DAILY 7 Days Qty: 7 0RF No Action levothyroxine 88 mcg tablet 88 mcg PO DAILY 30 Days Qty: 30 6RF ibuprofen 800 mg tablet 800 mg PO TID Qty: 90 3RF ondansetron 4 mg tablet,disintegrating 4 mg PO Q6-8H PRN (Reason: Vomiting) Qty: 10 0RF acetaminophen [Tylenol] 325 mg capsule 650 mg PO Q6H PRN (Reason: fever or pain) Qty: 30 0RF ibuprofen 600 mg tablet 600 mg PO Q8H PRN (Reason: fever or pain) Qty: 30 0RF dexamethasone 4 mg tablet 4 mg PO .COMPLEX Qty: 18 0RF Rx Instructions: 4 mg PO; 1 p.o. t.i.d. x3 days, 1 p.o. b.i.d. x3 days, 1 p.o. daily x3 days hydroxyzine HCl 25 mg tablet 25 mg PO TID PRN (Reason: anxiety) Qty: 21 0RF sydcuhrlrb-lckkrlbszf-xnb-cod [Fioricet with Codeine] [id number] mg capsule 1 cap PO .6H PRN (Reason: pain) Qty: 10 0RF Referrals: [facility] [Provider Group] (Call to establish and follow up with an orthopedic provider.) Flori Mejia MD [Primary Care Provider] - Stand Alone Forms: Work/School Release Interventions: ED Discharge Assessment Last Done: 01/08/24 10:15 Discharge Date/Time: 01/08/24 10:16 Print Language: Malagasy
[2024-01-08] MEDS: predniSONE 20 MG TABLET PO (10:06)
[2024-01-08] MEDS: Ketorolac Tromethamine 15 MG/ML VIAL IM (10:07)
[2024-01-08 10:15] VITALS: BP 137/77; PULSE 70; RESP 16; TEMP 36.1; O2SAT 100
== END 2024-01-08 10:16 | disposition home or self-care (01) ==
PROVIDERS: Emergency Provider Emergency Medicine; PCP Internal Medicine
DX: M17.0 Bilateral primary osteoarthritis of knee (principal); M25.562 Pain in left knee; M25.561 Pain in right knee
CPT/HCPCS: 29505; 96372; 99284; J1885

== ENCOUNTER 2024-01-13 07:50 | Outpatient (REF) | payer MEDICAID, SELFPAY ==
--- NOTE | ~2024-01-13 | XR_ITS ---
EXAMINATION: XR KNEE, RIGHT CLINICAL INFORMATION: Pain in right knee. COMPARISON: MRI 02/14/2015. X-ray 06/03/2014. TECHNIQUE: Three views of the right knee. FINDINGS: Small joint effusion. Moderate narrowing of the medial compartment. Small medial marginal and posterior patellar osteophytes. XR/XR knee RT 3V IMPRESSION: Moderate degenerative changes.
== END 2024-01-13 07:51 | disposition home or self-care (01) ==
LOC: HO.HOSX 07:50
PROVIDERS: Visit Provider Orthopaedic Surgery
DX: M25.562 Pain in left knee (principal); M25.561 Pain in right knee
CPT/HCPCS: 73562; 99202

== ENCOUNTER 2024-01-13 08:40 | Outpatient (AMB) | payer MEDICAID, SELFPAY ==
[2024-01-13 08:58] VITALS: BMI 31.4
--- NOTE | 2024-01-13 08:58 | A.OFFVIS_ITS ---
Vital Signs 01/13/24 08:58 Height 5 ft 3 in Weight 177 lb BMI 31.4 Intake Visit Reasons: EP [employer], Chronic bilateral knee pain Intake Note: Angella is a 58 year old female who presents with progressively worsening left knee pain and giving way. The patient did undergo right knee arthroscopic surgery performed by another orthopedic surgeon several years ago. She reports mild intermittent discomfort in her right knee. She states that this point her left knee pain and mechanical symptoms are much more bothersome to her than our her right. She has done physical therapy for her left knee pain which seemed to aggravate her pain. She has had injections in the past which gave her no relief. She has also tried Tylenol and ibuprofen which gave her minimal relief. She states that her left knee will give out several times per day. Allergies oxybutynin [OXYBUTYNIN] Allergy (Severe, Verified 01/08/24 08:45) TACHYCARDIA,FLUSHING,SOB Medication List - Last Reconciled 01/13/24 by Josue Schwartz MD acetaminophen (Tylenol) 650 mg (2 x 325 mg) PO Q6H PRN zqtehebchq-papahmrkem-eln-cod [id number] mg (Fioricet with Codeine) 1 cap PO .6H PRN dexamethasone 4 mg PO; 1 p.o. t.i.d. x3 days, 1 p.o. b.i.d. x3 days, 1 p.o. daily x3 days hydroxyzine HCl 25 mg PO TID PRN ibuprofen 600 mg PO Q8H PRN ibuprofen 800 mg PO TID levothyroxine 88 mcg PO DAILY 30 days ondansetron 4 mg PO Q6-8H PRN prednisone 20 mg PO DAILY 7 days PFSH Medical History (Updated 01/13/24 @ 09:33 by Josue Schwartz MD) Thyroid disease Surgical History (Updated 01/13/24 @ 09:04 by Bibiana Mullen CMA) Hx of right knee surgery Social History Housing: Apartment Alcohol intake: never Patient Tobacco Use Status: Never used Tobacco Second Hand Smoke Exposure: No service: No Current occupational status: employed 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rt hand Physical Exam Vital Signs: BMI result Body Mass Index 31.4 Const Other: Well-nourished well-developed very friendly female awake alert and oriented x3 in no acute distress Extrem Other: Bilateral lower extremity examination shows good capillary refill, no skin lesions noted, normal sensation light touch Right knee examination shows a minimal effusion, minimal crepitus with range of motion, negative Mell's test, no instability Left knee examination shows a minimal effusion, minimal crepitus with range of motion, tenderness along her medial joint line, positive Mell's test, no instability Results Reviewed Results Reviewed: Standing full weight-bearing x-rays of the patient's left knee show mild joint space narrowing, no acute bony abnormalities Standing full weight-bearing x-rays of the patient's right knee show mild to moderate joint space narrowing most significant in the medial compartment, no acute bony abnormalities Assessment & Plan Assessment & Plan (1) Left knee pain: Code(s): M25.562 - Pain in left knee Category: Medical (2) Right knee pain: Code(s): M25.561 - Pain in right knee Category: Medical Plan Ms. Kumar presents with left knee pain and mechanical symptoms most likely due to a tear of her medial meniscus. Thus, I will send the patient for an MRI of her left knee for further evaluation. I will see her back once the MRI is completed to discuss the findings and treatment options. At this point her right knee discomfort is tolerable to her after undergoing arthroscopic surgery several years ago. Feel free to call me at any time should questions regarding her orthopedic management arise. Thank you very much for asking me to see this very friendly patient. I spent 20 minutes in reviewing the patient's records and imaging studies, seeing the patient and documenting in the medical record. Orders: Orders XR knee RT 3V Today M25.561 - Pain in right knee MR knee LT wo con Today M25.562 - Pain in left knee Medications: New celecoxib (Celebrex) 200 mg PO DAILY PRN 30 caps 3RF pain Discontinued ibuprofen Discontinued Reason: Doctor's Order 800 mg PO TID 90 tabs 3RF Coding Level of Care Code New Pt Level 2 (68723) Diagnoses Left knee pain M25.562 Right knee pain M25.561
== END 2024-01-13 09:36 | disposition home or self-care (01) ==
PROVIDERS: PCP Internal Medicine; Visit Provider Orthopaedic Surgery
DX: M25.562 Pain in left knee (principal); M25.561 Pain in right knee
CPT/HCPCS: 99204

== ENCOUNTER 2024-02-11 08:00 | Outpatient (AMB) | payer OTHER, SELFPAY ==
[2024-02-11 08:04] VITALS: BP 120/78; PULSE 78; O2SAT 98; BMI 31.0
--- NOTE | 2024-02-11 08:04 | A.OFFPC_ITS ---
Vital Signs 02/11/24 08:04 Height 5 ft 3 in Weight 175 lb BMI 31.0 BP 120/78 Blood Pressure Location Lt brachial Position Sitting Pulse 78 Pulse Source Pulse Oximeter Pulse Oximetry (%) 98 Oxygen Delivery Method Room Air Intake Visit Reasons: Establish care from Layne Bell [facility]et Required: No Accompanied by: Self / Same As Patient Allergies oxybutynin [OXYBUTYNIN] Allergy (Severe, Verified 02/11/24 08:33) TACHYCARDIA,FLUSHING,SOB Medication List - Last Reconciled 02/11/24 by Gallito Aldana MD celecoxib (Celebrex) 200 mg PO DAILY PRN ibuprofen 800 mg PO Q8H levothyroxine 88 mcg PO DAILY 30 days Tobacco use date assessed: 02/11/24 Dental Screening Dental Screen Date: 02/11/24 Did you have a dental visit in the last 12 months?: No Did you have a dental problem in the last 6 months where you did not have access to dental care?: No Was dental information given to patient?: Yes HPI Establish care from Layne RUBI Details 58-year-old female presents to the offic e to discuss her medical condition. Her provider has left the practice and wishes to reestablish with me. Patient has history of left knee arthritis. She is seeing an orthopedic surgeon who has scheduled an MRI. She does not know the date of the MRI. She is also complaining of a trigger finger in the right hand. She had similar issues with the thumb on her right hand and received a steroid injection. She would like to be sent back to the orthopedic surgeon for evaluation of her 3rd finger. Patient is working and works as a cook at the cafeteria. She lives with her daughter. Does not smoke or abuse alcohol. History of thyroid disorder and her last TSH was done more than a year ago. Requesting a mammogram. Had a colonoscopy 5 years ago. [facility] Medical History (Updated 02/11/24 @ 08:43 by Gallito Aldana MD) Trigger middle finger of right hand Thyroid disease Surgical History Hx of right knee surgery Social History (Updated 02/11/24 @ 08:10 by CHEPE Phillips) Housing: Apartment Alcohol intake: never Patient Tobacco Use Status: Never used Tobacco e-Cigarette/Vaping Use: Never Used Second Hand Smoke Exposure: No service: No Current occupational status: employed 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rt hand Current occupational exposures/hazards: No Cognitive needs: No Hearing needs: No Vision needs: No Questionnaire PHQ-9 Over the last 2 weeks, how often have you been bothered by any of the following problems? 1. Little interest or pleasure in doing things: not at all 2. Feeling down, depressed, or hopeless: several days 3. Trouble falling or staying asleep, or sleeping too much: not at all 4. Feeling tired or having little energy: more than half the days 5. Poor appetite or overeating: not at all 6. Feeling bad about yourself - or that you are a failure or have let yourself or your family down: not at all 7. Trouble concentrating on things, such as reading the newspaper or watching television: not at all 8. Moving or speaking so slowly that other people could have noticed. Or the opposite - being so fidgety or restless that you have been moving around a lot more than usual: not at all 9. Thoughts that you would be better off or of hurting yourself in some way: not at all Total score: 3 Source: Developed by Drs. Good Park, Ligia Arroyo, Jose De Jesus Bahena and colleagues, with an educational terry from [employer]. Thrive Questionnaire Date Thrive assessed: 02/11/24 I am a: Patient What is your living situation today?: I have a steady place to live Within the past 12 months, did the food you bought not last and you didn't have the money to get more?: Never true Within the past 12 months, did you worry whether your food would run out before you got money to buy more?: Never true Do you have trouble paying for medicines?: No Do you have trouble getting transportation to medical appointments?: No Do you have trouble paying your heating and electricity bill?: No Do you have trouble taking care of your child, family member or friend?: No Do you have trouble with day-to-day activities such as bathing, preparing meals, shopping, managing finances, etc.?: No Are you currently unemployed and looking for a job?: No Are you interested in more education?: No Please select the resources that you would like help with: None Currently or been in a relationship where the following occur: no concerns reported THRIVE Score: 0 AUDIT C Alcohol Use Questionnaire (AUDIT-C) 1. How often do you have a drink containing alcohol?: Never Total Score: 0 KYLE-7 AMB Questionnaire KYLE-7 Date KYLE - 7 assessed: 02/11/24 Feeling nervous, anxious, or on edge: 1 = Several days Not being able to stop or control worryin = Not at all Worrying too much about different things: 0 = Not at all Trouble relaxin = Several days Being so restless that it is hard to sit still: 0 = Not at all Becoming easily annoyed or irritable: 0 = Not at all Feeling afraid as if something awful might happen: 0 = Not at all Total KYLE-7 score (0-4 normal; 5-9 mild; 10-14 moderate; 15-21 severe): 2 Source: Developed by Drs. Good Park, Ligia Arroyo, Jose De Jesus Bahena and colleagues, with an educational teryr from [employer]. Physical exam (Primary Care) Vital Signs: Last Vital Signs Pulse 78 02/11/24 08:04 BP 120/78 02/11/24 08:04 Pulse Ox 98 02/11/24 08:04 Oxygen Delivery Method Room Air 02/11/24 08:04 Care Plan Goal for BP management: Blood pressure is in range. BMI result Body Mass Index 31.0 BMI Assessment/Plan discussion: High (1 lb per week weight loss suggested.) BMI High, discussed plan: lifestyle, weight reduction and dietary Tobacco/Smoking Status: Tobacco use Status Tobacco use date assessed 02/11/24 02/11/24 08:13 Patient Tobacco Use Status Never used Tobacco 02/11/24 08:13 e-Cigarette/Vaping Use Never Used 02/11/24 08:13 PHQ-9: PHQ-9 Score PHQ-9: Total score 3 02/11/24 08:13 Thrive Assessment: Date of Thrive Assessment Date Thrive assessed 02/11/24 02/11/24 08:13 Currently or been in a relationship where the following occur: no concerns reported Const General: cooperative and healthy appearing Nutritional Appearance: well nourished Orientation/consciousness: patient oriented x3 Limitations: no limitations HENMT Head: Yes normal to inspection Eyes General: appearance normal, both eyes and all related structures Neck Neck: Yes normal visual inspection Chest Chest palpation & inspection: normal palpation of entire chest wall Resp Effort & Inspection: normal respiratory effort Neuro General: patient oriented x3 Extrem Other: Right hand: 3rd digit: Incomplete flexion. Full extension. Assessment and Plan Assessment & Plan (1) Hypothyroidism: Code(s): E03.9 - Hypothyroidism, unspecified Plan: TSH has been ordered. Will call with the results and adjust the thyroid dose accordingly. (2) Left knee pain: Code(s): M25.562 - Pain in left knee Plan: Patient has been scheduled an MRI of the knee. This was scheduled by the Orthopedic surgeon. She should call their office to discuss when her appointment is. (3) Trigger middle finger of right hand: Code(s): M65.331 - Trigger finger, right middle finger Plan: A referral will be made for a hand surgeon. (4) Generalized anxiety disorder: Code(s): F41.1 - Generalized anxiety disorder Plan: This condition requires no medications or therapy at the moment. Patient was advised to practice deep breathing and mindfulness. Orders: Orders Complete Blood Count no Diff Today E03.9 - Hypothyroidism, unspecified MM screening mammo BI Today E03.9 - Hypothyroidism, unspecified, Z12.31 - En counter for screening mammogram for malignant neoplasm of breast Basic Metabolic Panel Today E03.9 - Hypothyroidism, unspecified Thyroid Stimulating Hormone Today E03.9 - Hypothyroidism, unspecified Lipid Panel Today E03.9 - Hypothyroidism, unspecified Liver Panel Today E03.9 - Hypothyroidism, unspecified UA and rflx microscopic Today E03.9 - Hypothyroidism, unspecified Coding Level of Care Code Est Pt Level 4 (12147) Complex EM visit Add On G2211 Diagnoses Hypothyroidism E03.9 Left knee pain M25.562 Trigger middle finger of right hand M65.331 Generalized anxiety disorder F41.1
== END 2024-02-11 08:28 | disposition home or self-care (01) ==
PROVIDERS: PCP Internal Medicine; Visit Provider Internal Medicine
DX: E03.9 Hypothyroidism, unspecified (principal); M25.562 Pain in left knee; M65.331 Trigger finger, right middle finger; F41.1 Generalized anxiety disorder
CPT/HCPCS: 99214; G2211

== ENCOUNTER 2024-02-11 08:53 | Outpatient (REF) | payer OTHER, SELFPAY ==
[2024-02-11 09:29] LABS: Hematocrit 39.2 % (37.0-47.0); Hemoglobin 12.2 g/dl (12.0-16.0); Mean Corpuscular HGB Conc 31.1 g/dl (31.0-35.0); Mean Corpuscular Hemoglobin 26.6 pg (27.0-33.0); Mean Corpuscular Volume 85.4 fL (80.0-98.0); Mean Platelet Volume 9.5 fL (9.4-12.3); Platelet Count 372 X10*3/uL (160-400); Red Blood Count 4.59 X10*6/uL (4.20-5.50); Red Cell Distribution Width 14.1 % (11.0-16.0); White Blood Count 6.6 X10*3/uL (4.8-10.8)
[2024-02-11 10:01] LABS: Alanine Aminotransferase 19 U/L (0-31); Albumin Level 4.2 g/dL (3.5-5.0); Alkaline Phosphatase 92 U/L (39-117); Anion Gap 12 (12-20); Aspartate Amino Transferase 22 U/L (5-31); Bilirubin Direct 0.2 mg/dL (0.0-0.5); Bilirubin Total 0.7 mg/dL (0.0-1.0); Blood Urea Nitrogen 17 mg/dL (9-16); Calcium 9.7 mg/dL (8.4-10.2); Carbon Dioxide 25 mmol/L (22-29); Chloride 106 mmol/L (96-108); Cholesterol 276 mg/dL (<200); Estimated Glomerular Filt Rate > 60; Glucose Random 90 mg/dL (60-115); HDL Cholesterol 50 mg/dL (>40); LDL Cholesterol Calculated 179 mg/dL (<100); Potassium 4.2 mmol/L (3.3-5.1); Sodium 139 mmol/L (135-145); Triglycerides 235 mg/dL (<150)
[2024-02-11 10:19] LABS: Thyroid Stimulating Hormone 0.31 uIU/mL (0.32-4.0)
[2024-02-11 11:08] LABS: Appearance Urine Clear; Color Urine Yellow; Glucose Urine UA Negative (Negative); Leukocyte Esterase Urine Negative (Negative); Nitrite Urine Negative (Negative); PH 5.5 (5.0-9.0); Urine Blood Negative (Negative); Urine Ketones Negative (Negative); Urine Protein Negative (Neg-Trace)
== END 2024-02-11 08:54 | disposition home or self-care (01) ==
LOC: HO.LAB 08:53
PROVIDERS: PCP Internal Medicine; Visit Provider Internal Medicine
DX: E03.9 Hypothyroidism, unspecified (principal)
CPT/HCPCS: 36415; 80048; 80061; 80076; 81003; 84443; 85027

== ENCOUNTER 2024-03-23 08:59 | Outpatient (REF) | payer OTHER, SELFPAY ==
--- NOTE | ~2024-03-23 | MR_ITS ---
EXAMINATION: MR KNEE WITHOUT CONTRAST, LEFT CLINICAL INFORMATION: Left knee pain. COMPARISON: Radiograph dated 08/06/2023. TECHNIQUE: MRI of the knee without contrast was performed using routine sequences on a high-field scanner. FINDINGS: MENISCI: Medial Meniscus: A radial tear of the medial meniscal body extends through the full meniscal cross-section. Surrounding soft tissues are edematous. There is a vertical undersurface component of the tear which extends anteriorly toward the junction with the anterior horn. Remaining meniscal tissue at the body is extruded medially from the jointline. There is a horizontal undersurface component of the tendon that propagates into the posterior horn along the undersurface. There is a small associated posterior parameniscal cyst measuring 4 mm in diameter. Lateral Meniscus: Intact. LIGAMENTS: Cruciate: Intact. Collateral: Edema signal around the MCL is likely reactive to the underlying meniscal abnormality. Collateral ligaments are intact. EXTENSOR MECHANISM: Intact. ARTICULAR CARTILAGE/BONE: Patellofemoral Compartment: Mild nonuniform chondral thinning is present at the medial patellar facet and median ridge with associated chondral fibrillation. Small chondral fissure at the inferior aspect the medial trochlear facet. Small marginal osteophytes. Medial Compartment: There is moderate nonuniform partial-thickness cartilage loss at the medial femoral condyle weightbearing surface with more full-thickness chondral fissuring at the anterolateral third of the medial femoral condyle and underlying subchondral edema. More mild chondral thinning is present at the medial tibial plateau with [id number] size marginal osteophytes. Lateral Compartment: Mild nonuniform chondral thinning is present at the medial third of the lateral tibial plateau. There is focal subchondral edema signal in the lateral tibial plateau at the proximal tibiofibular joint with associated cartilage loss. JOINT FLUID AND BURSAE: Small joint effusion and Santana's cyst. No loose bodies. MR/MR knee LT wo con IMPRESSION: 1. Complex tear of the medial meniscus with dominant radial component at the meniscal body. 2. Tybu-iy-jkpanjse medial compartment osteoarthritis. More mild osteoarthritis in the patellofemoral and lateral compartments. 3. Small joint effusion and Satnana's cyst.
== END 2024-03-23 09:00 | disposition home or self-care (01) ==
LOC: HO.MRI 08:59
PROVIDERS: PCP Internal Medicine; Visit Provider Orthopaedic Surgery
DX: M25.562 Pain in left knee (principal)
CPT/HCPCS: 73721

== ENCOUNTER → 2024-03-30 11:45 | Outpatient (BNV) | payer OTHER, SELFPAY | PROVIDERS: PCP Internal Medicine; Visit Provider Radiology Diagnostic Radiology | DX: Z12.31 Encounter for screening mammogram for malignant neoplasm of breast (principal) | CPT/HCPCS: 77063; 77067 ==

== ENCOUNTER 2024-03-30 11:50 | Outpatient (REF) | payer OTHER, SELFPAY | END 2024-03-30 11:51 | disposition home or self-care (01) | LOC: HO.MAMMO 11:50 | PROVIDERS: PCP Internal Medicine; Visit Provider Internal Medicine | DX: Z12.31 Encounter for screening mammogram for malignant neoplasm of breast (principal) | CPT/HCPCS: 77063; 77067 ==

== ENCOUNTER 2024-05-01 11:27 | Outpatient (AMB) | payer OTHER, SELFPAY ==
--- NOTE | 2024-05-01 11:29 | MHC.OFFVIS ---
Vital Signs 05/01/24 11:35 Handedness Right Intake Visit Reasons: New prob/ RT MF trigger Intake Note: Angella is a 58 year right hand dominant female who presents today with a new problem of right middle finger trigger that began approximately 3 months ago. Patient reports pain and locking on finger. Patient describes pain as 8 on a 0-10 pain scale. She massages her finger with Amando and takes Tylenol which mildly helps her when she has the stiffness. She is unable to make a closed fist without pain in her PIP joint. Reports taking - for pain with/without relief. Patient states previous injection to the right thumb on 10/17/21 helped and would like to discuss steroid injection today. Allergies oxybutynin [OXYBUTYNIN] Allergy (Severe, Verified 05/01/24 11:34) TACHYCARDIA,FLUSHING,SOB HPI HPI New prob/ RT MF trigger: Details: Patient is a 58-year-old female who presents for evaluation of right middle finger trigger finger. Patient reports that locking and catching of her right middle finger began approximately 3 months ago, and has gradually worsened over that time. Patient reports that this issue has become significantly painful over that time frame, and states that her pain is currently at an 8 on the scale of 1-10 when her finger locks and catches. The patient reports that she did previously have a steroid injection into a trigger thumb in her right hand that gave her permanent relief, so she would like to discuss potential steroid injection into this right middle finger trigger finger today. Patient reports that when she does experience pain, she does take Tylenol, to mild relief. Patient denies any numbness or tingling in the right upper extremity. No Other acute complaints or concerns at this time. [facility] Medical History Trigger middle finger of right hand Thyroid disease Surgical History Hx of right knee surgery Social History Housing: Apartment Alcohol intake: never Patient Tobacco Use Status: Never used Tobacco e-Cigarette/Vaping Use: Never Used Second Hand Smoke Exposure: No service: No Current occupational status: employed 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rt hand Current occupational exposures/hazards: No Cognitive needs: No Hearing needs: No Vision needs: No Review of Systems Const All systems reviewed & are unremarkable except as noted in HPI and below Physical Exam Extrem Other: Patient is alert, oriented, and in no acute distress. Neuro: Median, ulnar, radial nerves motor and sensory intact and sensation is normal to the tips of all digits. Vascular: Cap refill brisk Pain: Pain with release of locking and catching of the right middle finger noted Tenderness to palpation over the A1 dorian of the right middle finger ROM: Visible and palpable locking and catching of the right middle finger noted Patient is able to make a closed fist and extend all other digits of the right hand without difficulty Skin: No lacerations or abrasions. General: No ecchymosis, erythema, or evidence of infection. Psych: Appears grossly normal Affect normal Attitude cooperative Office Procedures Tendon Injection Tendon Injection Details: Right middle finger trigger injection [id number] Tendon Sheath Injection All charges added?: Procedure code (CPT) selection complete Assessment & Plan Assessment & Plan (1) Trigger middle finger of right hand: Code(s): M65.331 - Trigger finger, right middle finger Category: Medical Plan 1. Right middle finger trigger finger Ongoing for approximately 3 months Injection 1: The risks and benefits of a steroid injection including but not limited to risk of damage to blood vessels, nerves, tendons, infection, skin bleaching, failure to improve symptoms, increased pain, and possible need for further injections or other intervention were discussed with the patient and the patient wishes to proceed with the steroid injection. Once consent was obtained, I sterilely prepped the area over the A1 dorian of the flexor tendon sheath of the right middle finger. I then injected the flexor tendon sheath with a combination of 1 mL of dexamethasone (4mg/ml), and 1% lidocaine. The patient tolerated the procedure well with no complications. If the patient continues to have locking and catching 4-6 weeks following this injection, they may call to schedule appointment to discuss alternative treatment options Follow-up prn Coding Level of Care Code Est Pt Level 3 (15771) Diagnoses Trigger middle finger of right hand M65.331 CPT Codes Tendon Injection - Tendon Injection 1: [id number] Tendon Sheath Injection ([id number])
== END 2024-05-01 12:07 | disposition home or self-care (01) ==
PROVIDERS: PCP Internal Medicine
DX: M65.331 Trigger finger, right middle finger (principal)
CPT/HCPCS: 20550; 99213

== ENCOUNTER → 2024-05-01 11:27 | Outpatient (BNVA) | payer OTHER, SELFPAY | PROVIDERS: PCP Internal Medicine | DX: M65.331 Trigger finger, right middle finger (principal) | CPT/HCPCS: 20550; 99212; J1100 ==

== ENCOUNTER 2024-05-13 13:34 | Outpatient (AMB) | payer OTHER, SELFPAY ==
--- NOTE | 2024-05-13 13:36 | A.OFFPC_ITS ---
Vital Signs 05/13/24 13:37 Height 5 ft 3 in Weight 172 lb 6 oz BMI 30.5 BP 110/70 Blood Pressure Location Lt brachial Position Sitting Pulse 83 Pulse Source Pulse Oximeter Pulse Oximetry (%) 99 Oxygen Delivery Method Room Air Intake Visit Reasons: Annual Exam Intake Note: Patient is here today for a physical. Do All Operator Required: No Credit Coordinator: Not Required per policy Accompanied by: Self / Same As Patient Allergies oxybutynin [OXYBUTYNIN] Allergy (Severe, Verified 05/13/24 14:00) TACHYCARDIA,FLUSHING,SOB Medication List - Last Reconciled 05/13/24 by Gallito Aldana MD aspirin 325 mg PO DAILY atorvastatin 10 mg PO BEDTIME ibuprofen 800 mg PO DAILY levothyroxine 88 mcg PO DAILY 30 days Tobacco use date assessed: 05/13/24 Dental Screening Dental Screen Date: 02/11/24 HPI Annual Exam HPI Details 59-year-old female presents to the [facility] requesting an annual physical. In addition patient reports symptoms of feeling spaced out . She is forgetful at times. No history of insomnia. Admits to being crank he at times and frustrated. Occasional crying spells. [facility] Medical History Trigger middle finger of right hand Thyroid disease Surgical History Hx of right knee surgery Social History Housing: Apartment Alcohol intake: never Patient Tobacco Use Status: Never used Tobacco e-Cigarette/Vaping Use: Never Used Second Hand Smoke Exposure: No service: No Current occupational status: employed 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rt hand Current occupational exposures/hazards: No Cognitive needs: No Hearing needs: No Vision needs: No Questionnaire PHQ-9 Over the last 2 weeks, how often have you been bothered by any of the following problems? 1. Little interest or pleasure in doing things: several days 2. Feeling down, depressed, or hopeless: not at all 3. Trouble falling or staying asleep, or sleeping too much: not at all 4. Feeling tired or having little energy: several days 5. Poor appetite or overeating: not at all 6. Feeling bad about yourself - or that you are a failure or have let yourself or your family down: not at all 7. Trouble concentrating on things, such as reading the newspaper or watching television: not at all 8. Moving or speaking so slowly that other people could have noticed. Or the opposite - being so fidgety or restless that you have been moving around a lot more than usual: several days 9. Thoughts that you would be better off or of hurting yourself in some way: not at all Total score: 3 Depression Screening Interpretation: Negative Depression Screening Done: Yes Source: Developed by Drs. Good Park, Lgiia Arroyo, Jose De Jesus Bahena and colleagues, with an educational terry from [employer]. Thrive Questionnaire Date Thrive assessed: 05/13/24 I am a: Patient What is your living situation today?: I have a steady place to live Within the past 12 months, did the food you bought not last and you didn't have the money to get more?: Never true Within the past 12 months, did you worry whether your food would run out before you got money to buy more?: Never true Do you have trouble paying for medicines?: No Do you have trouble getting transportation to medical appointments?: No Do you have trouble paying your heating and electricity bill?: Yes Do you have trouble taking care of your child, family member or friend?: No Do you have trouble with day-to-day activities such as bathing, preparing meals, shopping, managing finances, etc.?: No Are you currently unemployed and looking for a job?: No Are you interested in more education?: No Please select the resources that you would like help with: Food, Paying for medicine and Utilities Currently or been in a relationship where the following occur: No concerns reported THRIVE Score: 1 AUDIT C Alcohol Use Questionnaire (AUDIT-C) 1. How often do you have a drink containing alcohol?: Never Total Score: 0 KYLE-7 AMB Questionnaire KYLE-7 Date KYLE - 7 assessed: 05/13/24 Feeling nervous, anxious, or on edge: 1 = Several days Not being able to stop or control worryin = Not at all Worrying too much about different things: 0 = Not at all Trouble relaxin = Several days Being so restless that it is hard to sit still: 1 = Several days Becoming easily annoyed or irritable: 0 = Not at all Feeling afraid as if something awful might happen: 1 = Several days Total KYLE-7 score (0-4 normal; 5-9 mild; 10-14 moderate; 15-21 severe): 4 Source: Developed by Drs. Good Park, Ligia Arroyo, Jose De Jesus Bahena and colleagues, with an educational terry from [employer]. Physical exam (Primary Care) Vital Signs: Last Vital Signs Pulse 83 05/13/24 13:37 BP 110/70 05/13/24 13:37 Pulse Ox 99 05/13/24 13:37 Oxygen Delivery Method Room Air 05/13/24 13:37 Care Plan Goal for BP management: Blood pressure is in range. BMI result Body Mass Index 30.5 Tobacco/Smoking Status: Tobacco use Status Tobacco use date assessed 05/13/24 05/13/24 13:42 Patient Tobacco Use Status Never used Tobacco 05/13/24 13:42 e-Cigarette/Vaping Use Never Used 05/13/24 13:42 PHQ-9: PHQ-9 Score PHQ-9: Total score 3 05/13/24 13:42 Depression Screening Interpretation: Negative Thrive Assessment: Date of Thrive Assessment Date Thrive assessed 05/13/24 05/13/24 13:42 Currently or been in a relationship where the following occur: No concerns reported Const General: cooperative and healthy appearing Nutritional Appearance: well nourished Orientation/consciousness: patient oriented x3 Limitations: no limitations HENMT Head: Yes normal to inspection Eyes General: appearance normal, both eyes and all related structures Neck Neck: Yes normal visual inspection Chest Chest palpation & inspection: normal palpation of entire chest wall Resp Effort & Inspection: normal respiratory effort Neuro General: patient oriented x3 Assessment and Plan Assessment & Plan (1) Annual physical exam: Code(s): Z00.00 - Encounter for general adult medical examination without abnormal findings Plan: Patient is up-to-date on mammogram and colonography. Blood work is in range. Tester Operator Helper exam has been scheduled. (2) Absence seizure: Code(s): G40.A09 - Absence epileptic syndrome, not intractable, without status epilepticus Plan: Spoke to her daughter for more information about her symptoms. Daughter confirms that patient spaces out at times. Does not remember what was being told to her at that time. A neuro consult will be requested. Coding Level of Care Code Est Pt Level 4 (79177) Est Pt Prev Care 40-64y(39190) Diagnoses Annual physical exam Z00.00 Absence seizure G40.A09
[2024-05-13 13:37] VITALS: BP 110/70; PULSE 83; O2SAT 99; BMI 30.5
== END 2024-05-13 14:00 | disposition home or self-care (01) ==
PROVIDERS: PCP Internal Medicine; Visit Provider Internal Medicine
DX: Z00.00 Encounter for general adult medical examination without abnormal findings (principal); G40.A09 Absence epileptic syndrome, not intractable, without status epilepticus
CPT/HCPCS: 99214; 99396

== ENCOUNTER 2024-05-19 12:46 | Outpatient (AMB) | payer OTHER, SELFPAY ==
[2024-05-19 12:50] VITALS: BMI 30.5
--- NOTE | 2024-05-19 12:50 | MHC.OFFVIS ---
Vital Signs 05/19/24 12:50 Height 5 ft 3 in Weight 172 lb BMI 30.5 Intake Visit Reasons: left knee pain Intake Note: Angella is a 58 year old female who presents with progressively worsening left knee pain and giving way. The patient did undergo right knee arthroscopic surgery performed by another orthopedic surgeon several years ago. She reports mild intermittent discomfort in her right knee. She states that this point her left knee pain and mechanical symptoms are much more bothersome to her than our her right. She has done physical therapy for her left knee pain which seemed to aggravate her pain. She has had injections in the past which gave her no relief. She has also tried Tylenol and ibuprofen which gave her minimal relief. She states that her left knee will give out several times per day. Allergies oxybutynin [OXYBUTYNIN] Allergy (Severe, Verified 05/19/24 12:53) TACHYCARDIA,FLUSHING,SOB Medication List - Last Reconciled 05/19/24 by Josue Schwartz MD aspirin 325 mg PO DAILY atorvastatin 10 mg PO BEDTIME ibuprofen 800 mg PO DAILY levothyroxine 88 mcg PO DAILY 30 days [facility] Medical History Trigger middle finger of right hand Thyroid disease Surgical History Hx of right knee surgery Social History Housing: Apartment Alcohol intake: never Patient Tobacco Use Status: Never used Tobacco e-Cigarette/Vaping Use: Never Used Second Hand Smoke Exposure: No service: No Current occupational status: employed 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rt hand Current occupational exposures/hazards: No Cognitive needs: No Hearing needs: No Vision needs: No Physical Exam Vital Signs: BMI result Body Mass Index 30.5 Const Other: Well-nourished well-developed very friendly female awake alert and oriented x3 in no acute distress Extrem Other: Bilateral lower extremity examination shows good capillary refill, no skin lesions noted, normal sensation light touch Left knee examination shows a minimal effusion, minimal crepitus with range of motion, tenderness along her medial joint line, positive Mell's test, no instability Results Reviewed Results Reviewed: Standing full weight-bearing x-rays of the patient's left knee show mild diffuse joint space narrowing, no acute bony abnormalities MRI of the patient's left knee shows mild diffuse degenerative changes as well as a tear of the medial meniscus Assessment & Plan Assessment & Plan (1) Tear of medial meniscus of left knee: Code(s): S83.242A - Other tear of medial meniscus, current injury, left knee, initial encounter Category: Medical Plan Ms. Kumar presents with progressively worsening left knee pain and mechanical symptoms due to a medial meniscus tear. I had a lengthy discussion with the patient regarding the treatment options. At this point she has failed continued non operative treatments. The risks and benefits of left knee arthroscopic surgery were discussed at length with the patient. The patient wishes to proceed with surgery. She does understand that she may not get 100% relief of her symptoms depending on the severity of her degenerative changes. She will be scheduled for next available date. She will follow-up as instructed. Feel free to call me at any time should questions regarding her orthopedic management arise. I spent 20 minutes in reviewing the patient's records and imaging studies, seeing the patient and documenting in the medical record. Coding Level of Care Code Est Pt Level 3 (96729) Complex EM visit Add On G2211 Diagnoses Tear of medial meniscus of left knee S83.242A
== END 2024-05-19 13:09 | disposition home or self-care (01) ==
PROVIDERS: PCP Internal Medicine; Visit Provider Orthopaedic Surgery
DX: S83.242A Other tear of medial meniscus, current injury, left knee, initial encounter (principal)
CPT/HCPCS: 99213; G2211

== ENCOUNTER → 2024-05-19 12:46 | Outpatient (BNVA) | payer OTHER, SELFPAY | PROVIDERS: PCP Internal Medicine; Visit Provider Orthopaedic Surgery | DX: S83.242A Other tear of medial meniscus, current injury, left knee, initial encounter (principal); X58.XXXA Exposure to other specified factors, initial encounter; Y93.9 Activity, unspecified; Y92.9 Unspecified place or not applicable; Y99.9 Unspecified external cause status | CPT/HCPCS: 99212 ==

== ENCOUNTER 2024-06-05 05:35 | Day surgery (SDC) | payer OTHER, SELFPAY ==
[2024-06-03 08:43] VITALS: BMI 30.5
--- NOTE | 2024-06-03 09:42 | HO.ANESPROP2 ---
Documented by User: Carmita Chao NP 06/03/24 09:42 HPI - Anesthesia Eval Consult details Narrative: 59yo F for Left Knee Arthroscopy with partial medial meniscectomy PMFSH Active Problems Active Problems: All Active Problems Tear of medial meniscus of left knee (Acute) Trigger middle finger of right hand (Acute) Left knee pain (Acute) Right knee pain (Acute) Brain fog (Acute) Generalized anxiety disorder (Acute) Trigger finger of right thumb (Acute) Trigger finger of thumb (Acute) Hypothyroidism (Acute) Tension headache (Acute) Cervical radiculopathy (Acute) Acute bronchitis (Acute) Vomiting (Acute) Past Medical History Medical History Trigger middle finger of right hand Thyroid disease Surgical History Surgical History Hx of right knee surgery Social History Social History Housing: Apartment Alcohol intake: never Patient Tobacco Use Status: Never used Tobacco e-Cigarette/Vaping Use: Never Used Second Hand Smoke Exposure: No Use of substances other than those prescribed or required for medical reasons: No Are you DNR?: No Advance Directives: No Advance Directives Information Provided: Yes Advance Directives on File: No Recently lost weight without trying: No Nutrition Risks: No Nutritional Risk Patient : No service: No Current occupational status: employed 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rt hand Current occupational exposures/hazards: No Cognitive needs: No Hearing needs: No Vision needs: No Meds Allergies Allergy/AdvReac Type Severity Reaction Status Date / Time oxybutynin [OXYBUTYNIN] Allergy Severe TACHYCARDIA Verified 05/19/24 12:53 ,FLUSHING,S OB Exam Height,Weight and Vital Signs: Height 5 ft 3 in Weight 78.018 kg Assessment and Plan Assessment Anesthesia Assessment: Chart Reviewed Documented by User: Julianna Pablo MD 06/05/24 07:43 PMFSH Past Medical History Medical History Trigger middle finger of right hand Thyroid disease Family History Family history of problems with anesthesia: No Surgical History Surgical History Hx of right knee surgery History of Problems with Anesthesia: No Social History Social History Housing: Apartment Alcohol intake: never Patient Tobacco Use Status: Never used Tobacco e-Cigarette/Vaping Use: Never Used Second Hand Smoke Exposure: No Use of substances other than those prescribed or required for medical reasons: No Are you DNR?: No Advance Directives: No Advance Directives Information Provided: Yes Advance Directives on File: No Recently lost weight without trying: No Nutrition Risks: No Nutritional Risk Patient : No service: No Current occupational status: employed 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[employer] Current occupational exposures/hazards: No Cognitive needs: No Hearing needs: No Vision needs: No Meds Allergies Allergy/AdvReac Type Severity Reaction Status Date / Time oxybutynin [OXYBUTYNIN] Allergy Severe TACHYCARDIA Verified 05/19/24 12:53 ,FLUSHING,S OB Exam Airway Mallampati Class: II TM Dist: >3cm Neck ROM: Full Heart: rrr Lungs: cta Assessment and Plan Assessment Anesthesia Assessment: Anesthesia Plan Discussed Final Anesthetic Review Family History of Problems with Anesthesia: No History of Problems with Anesthesia: No NPO: Yes ASA Class: II Final Preanesthetic Review: No Changes in Pt Med Stat, Meds/Allgs Chart Reviewed, Consent Obtained/Reviewed and Anes Risks/Benef Reviewed Patient Risk: Low Procedure Risk: Low Anesthetic Plan Anesthetic Plan: MAC: Disposition: Standard PACU
[2024-06-05] VITALS (8 sets, daily range): BP systolic 103–131; BP diastolic 60–69; PULSE 59–72; RESP 16–18; TEMP 36.4–36.6; O2SAT 97–100; BMI 31.0
[2024-06-05] MEDS: Lactated Ringers 1,000 ML 100 ML IVCONT (06:40)
--- NOTE | 2024-06-05 08:29 | P.OP_ITS ---
Operative Note Operative Note Date of Service: 06/05/24 Narrative: After the patient was identified as Angella Kumar and her left knee was initialed by myself they were brought to the operating room where general anesthesia was induced by the anesthesiologist in routine fashion. The patient was given 2 g of IV Ancef preoperatively for infection prophylaxis. The patient's left lower extremity was prepped and draped in sterile fashion. A formal time-out was completed. Marcaine was injected into the planned incision sites as well as the patient's left knee joint. A #11 scalpel blade was used to make an anterolateral portal 1 cm proximal to the joint line and 1 cm lateral to the p atellar tendon. Blunt trocar technique was used to enter the suprapatellar pouch with the knee in extension. Diagnostic arthroscopy showed multiple bands of thickened plica which would be excised at the end of the procedure. There were no loose bodies or abnormalities found in either the medial or lateral gutters. The articular surface of the patella showed diffuse grade 2 degenerative changes. The trochlear groove articular surface showed diffuse grades 1 and 2 degenerative changes. The patient's knee was flexed to 45 degrees and a valgus force was placed upon it. The medial compartment was entered. An anteromedial portal was made 1 cm proximal to the joint line and 1 cm medial to the patellar tendon. Probing of the medial meniscus showed a radial tear of the posterior horn. A partial medial meniscectomy was performed using the arthroscopic shaver. Following the partial meniscectomy the remainder of the meniscus tissue was stable. There were diffuse grade 2 degenerative ch anges of the medial femoral condyle as well as grade 2 degenerative changes of the medial tibial plateau. The articular surface of the medial femoral condyle was then made smooth using the arthroscopic shaver. The articular surface of the medial tibial plateau was already smooth so no chondroplasty was indicated. The patient's knee was placed into a neutral position. There was no injury to the anterior cruciate ligament. The patient's knee was then placed in the figure of 4 position and the lateral compartment was entered. There was no evidence of lateral meniscus tearing. There were minimal degenerative changes of the lateral femoral condyle and lateral tibial plateau. The patient's knee was once again brought into extension and the suprapatellar pouch was entered. The arthroscopic shaver and the ArthroCare Wand were used to excise the thickened bands of plica. The undersurface of the patella was then made smooth using the arthroscopic shaver. The articular surface of the trochlear groove was already smooth so no chondroplasty was indicated. The knee joint was irrigated and then drained. All arthroscopic instruments were removed. The 2 portals were closed with 3-0 nylon interrupted suture. The knee joint was injected with Marcaine. Dry sterile dressing and Moe bandages were placed over the patient's knee. The patient was awoken and extubated in the operating room. The patient was transferred to the recovery room in stable condition.
--- NOTE | 2024-06-05 08:29 | P.BOP_ITS ---
Brief Operative Note Date of Service: 06/05/24 Pre-op diagnosis: Left knee medial meniscus tear, left knee degenerative joint disease Post-op diagnosis: same Procedure: Left knee diagnostic arthroscopy with left knee arthroscopic partial medial meniscectomy, left knee arthroscopic chondroplasty of the undersurface of the patella as well as the medial femoral condyle Implants: none Surgeon: Josue Schwartz MD Anesthesia: GLMA Was an Flexo Press Operator used for this Procedure?: No Estimated blood loss (mL): 10 Pathology: none sent Condition: stable Disposition: PACU
[2024-06-05] MEDS: cefTRIAXone sodium 1 GM in 0.9 % Sodium Chloride 50 ML IV (08:42)
[2024-06-05] MEDS: fentaNYL citrate/PF 100 MCG/2 ML VIAL 25 MCG IVPUSH ×2 (08:53→09:05)
--- NOTE | 2024-06-05 10:15 | PC.NURSE ---
pharmacy delivered prescription to patient.
== END 2024-06-05 09:52 | disposition home or self-care (01) ==
PROVIDERS: PCP Internal Medicine; Visit Provider Orthopaedic Surgery
PROC: (CPT 29870; principal; 2024-06-05 07:30)
DX: S83.242A Other tear of medial meniscus, current injury, left knee, initial encounter (principal); X58.XXXA Exposure to other specified factors, initial encounter; Y93.9 Activity, unspecified; Y92.9 Unspecified place or not applicable; Y99.8 Other external cause status; M17.12 Unilateral primary osteoarthritis, left knee; M25.562 Pain in left knee; M67.52 Plica syndrome, left knee; Z79.1 Long term (current) use of non-steroidal anti-inflammatories (NSAID); Z79.82 Long term (current) use of aspirin; Z79.899 Other long term (current) drug therapy; Z88.8 Allergy status to other drugs, medicaments and biological substances; Z98.890 Other specified postprocedural states
CPT/HCPCS: 29881; J0131; J0171; J0690; J0696; J1100; J1885; J2003; J2371; J2405; J2704; J2795; J3010

== ENCOUNTER → 2024-06-05 05:35 | Outpatient (BNV) | payer OTHER, SELFPAY | PROVIDERS: PCP Internal Medicine; Visit Provider Orthopaedic Surgery | DX: S83.242A Other tear of medial meniscus, current injury, left knee, initial encounter (principal) | CPT/HCPCS: 29881 ==

== ENCOUNTER 2024-06-18 13:21 | Outpatient (AMB) | payer OTHER, SELFPAY ==
--- NOTE | 2024-06-18 13:39 | A.OFFVIS_ITS ---
Intake Visit Reasons: PO LT knee 06/05/24 Intake Note: Angella is a 59 year old female who presents with complaints of mild to moderate discomfort in her left knee after undergoing left knee arthroscopic surgery on 06/05/2024. She denies any fevers or chills. She continues with her home stretching program. She states that she has not yet returned to work. She would like to return to work in August because she is on her feet for up to 7 hours per day when she is working. Allergies oxybutynin [OXYBUTYNIN] Allergy (Severe, Verified 05/19/24 12:53) TACHYCARDIA,FLUSHING,SOB Medication List - Last Reconciled 06/19/24 by Josue Schwartz MD atorvastatin 10 mg PO BEDTIME levothyroxine 88 mcg PO DAILY 30 days oxycodone 5 mg PO Q6H PRN PFSH Medical History Trigger middle finger of right hand Thyroid disease Surgical History Hx of right knee surgery Social History Housing: Apartment Alcohol intake: never Patient Tobacco Use Status: Never used Tobacco e-Cigarette/Vaping Use: Never Used Second Hand Smoke Exposure: No service: No Current occupational status: employed 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rt hand Current occupational exposures/hazards: No Cognitive needs: No Hearing needs: No Vision needs: No Physical Exam Extrem Other: Physical examination of the patient's left knee shows that the surgical incisi ons are healing well, no erythema, minimal discomfort with range of motion, minimal crepitus with range of motion Assessment & Plan Assessment & Plan (1) Left knee pain: Code(s): M25.562 - Pain in left knee Category: Medical Plan Ms. Kumar is doing well after undergoing left knee arthroscopic surgery on 06/05/2024. Her sutures were removed and Steri-Strips placed over her incisions. She will continue with her home exercise program. I will clear her to return to work once her discomfort and endurance have improved. She will contact me prior to her follow-up appointment in 6 weeks should any questions or concerns arise. Feel free to call me at any time should questions regarding her orthopedic management arise. Coding Level of Care Code Global (40163) Diagnoses Left knee pain M25.562
== END 2024-06-18 14:04 | disposition home or self-care (01) ==
PROVIDERS: PCP Internal Medicine; Visit Provider Orthopaedic Surgery
DX: M25.562 Pain in left knee (principal)
CPT/HCPCS: 99024

== ENCOUNTER → 2024-06-18 13:21 | Outpatient (BNVA) | payer OTHER, SELFPAY | PROVIDERS: PCP Internal Medicine; Visit Provider Orthopaedic Surgery | DX: M25.562 Pain in left knee (principal); Z47.89 Encounter for other orthopedic aftercare; Z98.890 Other specified postprocedural states | CPT/HCPCS: 99212 ==

== ENCOUNTER 2024-07-18 11:43 | Outpatient (AMB) | payer OTHER, SELFPAY ==
[2024-07-18 12:00] VITALS: BP 120/70; PULSE 76; TEMP 36.7; O2SAT 99
--- NOTE | 2024-07-18 12:00 | AM.OFFWIN_ITS ---
Intake Vital Signs 07/18/24 12:00 Height 5 ft 3 in BP 120/70 Blood Pressure Location Rt brachial Position Sitting Pulse 76 Pulse Source Pulse Oximeter Temp 98.1 F Temp Source Oral Pulse Oximetry (%) 99 Intake Visit Reasons: EP Sore throat Intake Note: pt is here for sore throat Patient Tobacco Use Status: Never used Tobacco Allergies oxybutynin [OXYBUTYNIN] Allergy (Severe, Verified 07/18/24 12:00) TACHYCARDIA,FLUSHING,SOB Do you need a note to return to daycare/school/sports/work: No HPI HPI Comments History of Present Illness Details 59 y/o female patient who presents to [facility] with c/o sore- throat since yesterday. Denies fevers, chills, nausea or vomiting. PFSH Medical History Trigger middle finger of right hand Thyroid disease Surgical History Hx of right knee surgery Social History Housing: Apartment Alcohol intake: never Patient Tobacco Use Status: Never used Tobacco e-Cigarette/Vaping Use: Never Used Second Hand Smoke Exposure: No service: No Current occupational status: employed 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rt hand Current occupational exposures/hazards: No Cognitive needs: No Hearing needs: No Vision needs: No Review of Systems Const All systems reviewed & are unremarkable except as noted in HPI and below Physical Exam Vital Signs: Last Vital Signs Temp 98.1 F 07/18/24 12:00 Pulse 76 07/18/24 12:00 BP 120/70 07/18/24 12:00 Pulse Ox 99 07/18/24 12:00 Const General: cooperative, comfortable and no acute distress Nutritional Appearance: obese Orientation/consciousness: patient oriented x3 HEENT Head: Yes normocephalic Ears: external ears normal and TM's normal bilaterally General nose exam: Normal external nose present Face and sinus: Yes sinuses nontender Mouth: moist mucous membranes and Abnormal oral and palatal mucosa present eryth ematous; not edematous, no hematomas and no white patches Resp Effort & Inspection: normal respiratory effort and able to speak in complete sentences Auscultation: clear to auscultation bilaterally, no crackles, no rales, no rhonchi and no wheezes Cardio Heart sounds: S1 normal heart sound present and S2 normal heart sound present Neuro General: patient oriented x3, gait normal and moves all extremities Psych Speech and movement: Normal speech and movement present Results AMB Rapid Strep AMB Rapid Strep Negative Last Edit by Ramesh Fenton CMA on 07/18/24 12 :24 Results Reviewed Results Reviewed: Laboratory Last Values Strep Scn Rapid Clinic Negative 07/18/24 12:21 Assessment & Plan Assessment & Plan (1) Acute pharyngitis: Code(s): J02.9 - Acute pharyngitis, unspecified Qualifiers: Pharyngitis/tonsillitis etiology: unspecified etiology Qualified Code(s): J02.9 - Acute pharyngitis, unspecified Plan: OTC Sore-throat remedies Hydrate with warm fluids and honey Acetaminophen for pain relief. Orders: Orders AMB Rapid Strep Screen Today Z13.9 - Encounter for screening, unspecified Coding Level of Care Code Est Pt Level 3 (97573) Diagnoses Acute pharyngitis, unspecified etiology J02.9 Pharyngitis/tonsillitis etiology: unspecified etiology Time Spent (min) 15
== END 2024-07-18 12:45 | disposition home or self-care (01) ==
PROVIDERS: PCP Internal Medicine; Visit Provider Nurse Practitioner Family
DX: J02.9 Acute pharyngitis, unspecified (principal); Z13.9 Encounter for screening, unspecified

== ENCOUNTER → 2024-07-18 11:43 | Outpatient (BNVA) | payer OTHER, SELFPAY | PROVIDERS: PCP Internal Medicine; Visit Provider Nurse Practitioner Family | DX: J02.9 Acute pharyngitis, unspecified (principal) | CPT/HCPCS: 87880; 99212 ==

== ENCOUNTER 2024-08-07 14:47 | Outpatient (REF) | payer OTHER, SELFPAY ==
[2024-08-10 07:49] LABS: CT PCR NOT DETECTED (Not Detect.); NG PCR NOT DETECTED (Not Detect.)
[2024-08-10 11:22] LABS: HPV 16,18/45 See PAP report
== END 2024-08-07 14:48 | disposition home or self-care (01) ==
LOC: HO.LNP 14:47
PROVIDERS: PCP Internal Medicine; Visit Provider Advanced Practice Midwife
DX: Z01.419 Encounter for gynecological examination (general) (routine) without abnormal findings (principal); N88.9 Noninflammatory disorder of cervix uteri, unspecified; L98.9 Disorder of the skin and subcutaneous tissue, unspecified; R32 Unspecified urinary incontinence
CPT/HCPCS: 87491; 87591; 87624; 88175; 99386

== ENCOUNTER 2024-08-07 14:47 | Outpatient (AMB) | payer OTHER, SELFPAY ==
--- NOTE | 2024-08-07 14:49 | MHC.OFFVIS ---
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 She is doing well with concerns: incontinence, a skin growth in her lower abdomen that is itchy over the last 5 years. Currently not sexually active in years. Denies any vaginal dryness or irritation. STI testing offered; she declined. She denies any vaginal bleeding or pelvic pain. Attempting to eat a healthy diet with calcium and vitamin D and stays active with exercise at work. Last pap smear; 2015. Last mammogram; 2023. Colonoscopy is UTD. Denies any family history of breast, ovarian or colon cancer. [facility] Medical History (Updated 08/07/24 @ 15:23 by Trisha Pacheco CNM) Skin lesion Incontinence Hypertension Tension headache Trigger middle finger of right hand Thyroid disease Surgical History (Updated 08/07/24 @ 14:59 by CHEPE Catherine) Hx of tubal ligation Hx of right knee surgery Social History Housing: Apartment Alcohol intake: never Patient Tobacco Use Status: Never used Tobacco e-Cigarette/Vaping Use: Never Used Second Hand Smoke Exposure: No service: No Current occupational status: employed 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rt hand Current occupational exposures/hazards: No Cognitive needs: No Hearing needs: No Vision needs: No Female Reproductive History Menstrual control method: permanent sterilization Permanent Sterilization: BTL Total pregnancies: 4 Full term: 4 Number of Living Children: 4 Date of last pap smear: 11/24/15 (neg pap and hpv) Date of Mammogram: 03/30/24 (Birad 1) Other: Colonoscopy 09/2017 Review of Systems Const All systems reviewed & are unremarkable except as noted in HPI and below Reports as per HPI Eyes Reports no additional complaints ENT Reports no additional complaints Card Reports no additional complaints Resp Reports no additional complaints GI Reports as per HPI and Reports no additional complaints Reports as per HPI Musc Reports no additional complaints Skin/Breast Reports as per HPI Neuro Reports no additional complaints Psych Reports no additional complaints Endo Reports no additional complaints Ilan/Lymph Reports no additional complaints Aller/Immun Reports no additional complaints Physical Exam Const General: cooperative, healthy appearing, no acute distress, well developed and alert Orientation/consciousness: patient oriented x3 HEENT Head: Yes normal to inspection Eyes General: appearance normal, both eyes and all related structures Neck Neck: Yes normal visual inspection Thyroid: Thyroid normal Chest Chest palpation & inspection: normal inspection of the chest and other (no puckering, dimpling, peau de orange, retraction, discharge, masses) Breast/axilla inspection: normal inspection of the breasts Breast/axilla palpation: normal palpation of the breasts Resp Effort & Inspection: normal respiratory effort GI Inspection: Yes normal to inspection Palpation (GI): Soft to palpation Rectal Exam - Female: deferred General: Yes bladder normal to palpation External Female Exam: normal external appearance and normal appearance of the urethra Speculum Exam - Vagina: normal appearance of the vagina, normal palpation, normal vaginal discharge and vagina atrophic Speculum Exam - Cervix: normal appearance of the cervix, normal palpation and Cervical mass present (Slightly friable with Pap) tender Bimanual exam- vagina & uterus: normal bimanual exam, normal palpation, uterine size normal, bladder normal to palpation, normal palpation and non-tender Bimanual Exam- Adnexa, other: no masses Skin Lesions: lesion noted (Lower abdominal area midline, pannus fold, large brown, rough surfaced) Rashes: no rashes Neuro General: patient oriented x3 Cognition (Neuro): normal cognition Extrem General: Yes normal to inspection Psych Attitude: cooperative Thought process: Normal thought process present Assessment & Plan Assessment & Plan (1) Encounter for well woman exam with routine gynecological exam: Code(s): Z01.419 - Encounter for gynecological examination (general) (routine) without abnormal findings Category: Medical (2) Incontinence: Code(s): R32 - Unspecified urinary incontinence Category: Medical (3) Skin lesion: Code(s): L98.9 - Disorder of the skin and subcutaneous tissue, unspecified Category: Medical Plan Discussed: Current recommendations for pap smears per ASCCP guidelines. Pap obtained await results for plan of care. Breast awareness, periodic self breast exams and yearly mammogram. Maintain a healthy lifestyle, well balanced diet including Calcium 1,200 mg and Vitamin D 600 IU daily, and routine exercise. Use of condoms for STI prevention if indicated. GC chlamydia urine obtained. Contact the office with any postmenopausal bleeding. Referral to urology for incontinence placed. Referral to Dermatology for large skin lesion placed. Appointment with Dr. Dickerson for evaluation of large cervical lesion. Patient verbalizes understanding and agrees to the plan of care. She was given opportunity to ask questions and all questions were answered to the best of my ability. RTO in 1 year for annual sliver former exam. This note is constructed using voice recognition software. While every effort has been made to ensure accuracy, brownfield redevelopment specialist errors may have been included. Orders: Orders HPV High risk Today Z01.419 - Encounter for gynecological examination (general) (routine) without abnormal findings CT NG by PCR Today N88.9 - Noninflammatory disorder of cervix uteri, unspecified Pap Smear Today N88.9 - Noninflammatory disorder of cervix uteri, unspecified, Z01.419 - Encounter for gynecological examination (general) (routine) without abnormal findings Referrals Dermatology Referral L98.9 - Disorder of the skin and subcutaneous tissue, unspecified Urology Referral R32 - Unspecified urinary incontinence Coding Level of Care Code New Pt Prev Care 40-64y(38166) Diagnoses Encounter for well woman exam with routine gynecological exam Z01.419 Incontinence R32 Skin lesion L98.9
[2024-08-07 14:51] VITALS: BP 114/76; BMI 31.0
== END 2024-08-07 15:26 | disposition home or self-care (01) ==
PROVIDERS: PCP Internal Medicine; Visit Provider Advanced Practice Midwife
DX: Z01.419 Encounter for gynecological examination (general) (routine) without abnormal findings (principal); R32 Unspecified urinary incontinence; L98.9 Disorder of the skin and subcutaneous tissue, unspecified
CPT/HCPCS: 99386

== ENCOUNTER 2024-08-19 08:58 | Outpatient (AMB) | payer OTHER, SELFPAY ==
--- NOTE | 2024-08-19 09:02 | A.OFFVIS_ITS ---
Vital Signs 08/19/24 09:04 Height 5 ft 3 in Weight 175 lb BMI 31.0 Intake Visit Reasons: PO LT knee 06/05/24 DR Intake Note: Angella is a 59 year old female who presents with complaints of mild intermittent discomfort in her left knee after undergoing left knee arthroscopic surgery on 06/05/2024. She continues with her home exercise program. She has taken Tylenol and Aleve which gave her mild relief. She denies any fevers or chills. Allergies oxybutynin [OXYBUTYNIN] Allergy (Severe, Verified 08/19/24 09:06) TACHYCARDIA,FLUSHING,SOB Medication List - Last Reconciled 08/19/24 by Josue Schwartz MD atorvastatin 10 mg PO BEDTIME levothyroxine 88 mcg PO DAILY 30 days topiramate 25 mg PO DAILY PFSH Medical History Skin lesion Incontinence Hypertension Tension headache Trigger middle finger of right hand Thyroid disease Surgical History Hx of tubal ligation Hx of right knee surgery Social History Housing: Apartment Alcohol intake: never Patient Tobacco Use Status: Never used Tobacco e-Cigarette/Vaping Use: Never Used Second Hand Smoke Exposure: No service: No Current occupational status: employed 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rt hand Current occupational exposures/hazards: No Cognitive needs: No Hearing needs: No Vision needs: No Physical Exam Vital Signs: BMI result Body Mass Index 31.0 Extrem Other: Left knee examination shows that the surgical incisions are well healed, no erythema, minimal crepitus with range of motion, mild discomfort with range of motion Assessment & Plan Assessment & Plan (1) Left knee pain: Code(s): M25.562 - Pain in left knee Category: Medical Plan Ms. Kumar continues to do fairly well after undergoing left knee arthroscopic surgery on 06/05/2024. She does have residual discomfort due to early degenerative joint disease. I discussed with the patient the fact that her discomfort should continue to improve over the next few months. I did give her a prescription for a Medrol Dosepak. Activity modifications were discussed at length with the patient. She will contact me prior to her follow-up appointment in 2 months should any questions or concerns arise. Feel free to call me at any time should questions regarding her orthopedic management arise. Medications: New methylprednisolone (Medrol (Fei)) PO PER PKG DIR 21 ea 0RF Coding Level of Care Code Global (33556) Diagnoses Left knee pain M25.562
--- NOTE | 2024-08-19 09:02 | MHC.OFFVIS ---
Vital Signs 08/19/24 09:04 Height 5 ft 3 in Weight 175 lb BMI 31.0 Intake Visit Reasons: PO LT knee 06/05/24 DR Intake Note: Angella is a 59 year old female who presents today after undergoing left knee arthroscopic surgery on 06/05/2024. Allergies oxybutynin [OXYBUTYNIN] Allergy (Severe, Verified 08/19/24 09:06) TACHYCARDIA,FLUSHING,SOB Medication List - Last Reconciled 08/19/24 by Josue Schwartz MD atorvastatin 10 mg PO BEDTIME levothyroxine 88 mcg PO DAILY 30 days topiramate 25 mg PO DAILY PFSH Medical History Skin lesion Incontinence Hypertension Tension headache Trigger middle finger of right hand Thyroid disease Surgical History Hx of tubal ligation Hx of right knee surgery Social History Housing: Apartment Alcohol intake: never Patient Tobacco Use Status: Never used Tobacco e-Cigarette/Vaping Use: Never Used Second Hand Smoke Exposure: No service: No Current occupational status: employed 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rt hand Current occupational exposures/hazards: No Cognitive needs: No Hearing needs: No Vision needs: No Physical Exam Vital Signs: BMI result Body Mass Index 31.0 Assessment & Plan Assessment & Plan Medications: New methylprednisolone (Medrol (Fei)) PO PER PKG DIR 21 ea 0RF Coding
[2024-08-19 09:04] VITALS: BMI 31.0
== END 2024-08-19 09:17 | disposition home or self-care (01) ==
PROVIDERS: PCP Internal Medicine; Visit Provider Orthopaedic Surgery
DX: M25.562 Pain in left knee (principal)
CPT/HCPCS: 99024

== ENCOUNTER → 2024-08-19 08:58 | Outpatient (BNVA) | payer OTHER, SELFPAY | PROVIDERS: PCP Internal Medicine; Visit Provider Orthopaedic Surgery | DX: M25.562 Pain in left knee (principal) | CPT/HCPCS: 99212 ==

== ENCOUNTER 2024-09-09 08:18 | Outpatient (AMB) | payer OTHER, SELFPAY ==
[2024-09-09 08:21] VITALS: BMI 31.0
--- NOTE | 2024-09-09 08:21 | A.OFFVIS_ITS ---
Vital Signs 09/09/24 08:21 Height 5 ft 3 in Weight 175 lb BMI 31.0 Intake Visit Reasons: NewProb- RT middle TF Intake Note: Angella is a 59 year old right hand dominant female who presents today for a new problem visit with complaints of Right Middle Trigger finger. Patient reports that she has had locking, catching and limited ROM of the middle finger for quite some time now. She has been dong home exercises. Denies numbness. Allergies oxybutynin [OXYBUTYNIN] Allergy (Severe, Verified 08/19/24 09:06) TACHYCARDIA,FLUSHING,SOB HPI HPI NewProb- RT middle TF: Details: Angella is a 59 year old right hand dominant woman who returns to discuss her right middle trigger finger. She complains of painful locking & catching of her right middle finger. She was seen by ROXANE Mclain and received an injection on 05/01/24, with limited relief. She is unsure if she wants to consider surgery at this time due to her work schedule. 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 [facility] Medical History Skin lesion Incontinence Hypertension Tension headache Trigger middle finger of right hand Thyroid disease Surgical History Hx of tubal ligation Hx of right knee surgery Social History Housing: Apartment Alcohol intake: never Patient Tobacco Use Status: Never used Tobacco e-Cigarette/Vaping Use: Never Used Second Hand Smoke Exposure: No service: No Current occupational status: employed 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rt hand Current occupational exposures/hazards: No Cognitive needs: No Hearing needs: No Vision needs: No Review of Systems Const All systems reviewed & are unremarkable except as noted in HPI and below Physical Exam Vital Signs: BMI result Body Mass Index 31.0 Const General: no acute distress and alert Orientation/consciousness: patient oriented x3 Neuro General: patient oriented x3 Extrem Other: Evaluation of Right Upper Extremity: The patient is alert, oriented, and in no acute distress Neuro: Median, Ulnar, Radial nerves motor and sensory intact and sensation is normal to the tips of all digits Vascular: Cap refill brisk ROM: She can make a fist and extend all her digits Visible and palpable locking & catching of the middle finger Tender over the middle finger a1 dorian Psych Appearance: grossly normal Affect: normal affect Attitude: cooperative Assessment & Plan Assessment & Plan (1) Trigger middle finger of right hand: Code(s): M65.331 - Trigger finger, right middle finger Category: Medical Plan Assessment & Plan: 1. Right middle finger trigger finger S/P injection Date of Injection: 05/01/24 I educated her about this condition I discussed operative and non-operative treatment options The patient would like to proceed with surgery I encouraged her to continue with her ROM exercises at home The risks and benefits of operative treatment were discussed with the patient and the patient wishes to proceed with surgery. These risks include, but are not limited to risk of damage to blood vessels, nerves, tendons, infection, recurrence, incomplete relief of preoperative symptoms, persistent pain, possible need for further surgery and the risks associated with regional blocks and anesthesia. The plan is to take the patient to the operating room sometime in the next few weeks for the following procedures: 1. Right middle finger trigger release, under local All of the preoperative paperwork including the consent was reviewed today. All the patient's questions were answered. The patient understands that they will be contacted by our hand etcher helper soon to schedule this procedure. She is requesting to have this done on a Saturday due to her work schedule. She denies Diabetes, blood thinners, asthma, heart, lung, kidney issues 2. Right trigger thumb, S/P injection Date of Injection: 10/17/21 Resolved Scribed for Keyonna Chamberlain MD by Momo Baker medical lab assistant, on 09/09/24 at 8:40 AM, EST. Coding Level of Care Code Est Pt Level 4 (41731) Diagnoses Trigger middle finger of right hand M65.331
== END 2024-09-09 08:51 | disposition home or self-care (01) ==
PROVIDERS: PCP Internal Medicine; Visit Provider Orthopaedic Surgery
DX: M65.331 Trigger finger, right middle finger (principal)
CPT/HCPCS: 99214

== ENCOUNTER → 2024-09-09 08:18 | Outpatient (BNVA) | payer OTHER, SELFPAY | PROVIDERS: PCP Internal Medicine; Visit Provider Orthopaedic Surgery | DX: M65.331 Trigger finger, right middle finger (principal) | CPT/HCPCS: 99212 ==

== ENCOUNTER 2024-10-01 08:44 | Outpatient (AMB) | payer OTHER, SELFPAY ==
--- NOTE | 2024-10-01 08:52 | MHC.OFFVIS ---
Intake Visit Reasons: urinary incontinence Intake Note: New patient Presents for Urinary Incontinence Any Urology Medication: None Antibiotic Allergies: None Blood Thinners: None PVR: 0ml Clinical Engineering Director Required: No Dynamo Repairer: Dynamo Repairer Present Accompanied by: Daughter Allergies oxybutynin [OXYBUTYNIN] Allergy (Severe, Verified 10/01/24 08:58) TACHYCARDIA,FLUSHING,SOB HPI Comments Details: Angella is here for evaluation in complains of urinary incontinence. She reports that she is leaking all the time with coughing as well as at other times. She denies irritative voiding symptoms. She has had 4 vaginal deliveries all less than 9 lb and denies any issues with delivery. Urinalysis is within normal limits I have discussed behavioral modification timed voiding every 2-3 hours and avoid dietary bladder irritants. I have discussed further evaluation with urodynamics. [facility] Medical History Skin lesion Incontinence Hypertension Tension headache Trigger middle finger of right hand Thyroid disease Surgical History Hx of tubal ligation Hx of right knee surgery Social History Housing: Apartment Alcohol intake: never Patient Tobacco Use Status: Never used Tobacco e-Cigarette/Vaping Use: Never Used Second Hand Smoke Exposure: No service: No Current occupational status: employed 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rt hand Current occupational exposures/hazards: No Cognitive needs: No Hearing needs: No Vision needs: No Review of Systems Const All systems reviewed & are unremarkable except as noted in HPI and below Reports no additional complaints Eyes Reports no additional complaints ENT Reports no additional complaints Card Reports no additional complaints Resp Reports no additional complaints GI Reports no additional complaints Reports as per HPI Musc Reports no additional complaints Skin/Breast Reports system reviewed and no additional complaints, except as documented Neuro Reports no additional complaints Psych Reports no additional complaints Endo Reports no additional complaints Ilan/Lymph Reports no additional complaints Aller/Immun Reports no additional complaints Physical Exam Const General: cooperative, healthy appearing and no acute distress Orientation/consciousness: patient oriented x3 HEENT Head: Yes normal to inspection, Yes normocephalic and Yes atraumatic Eyes Conjunctivae: conjunctivae normal Neck Neck: Yes normal visual inspection and Yes trachea midline Chest Chest palpation & inspection: normal inspection of the chest Resp Effort & Inspection: normal respiratory effort GI Inspection: Yes normal to inspection Palpation (GI): Soft to palpation Neuro General: patient oriented x3 Extrem General: No edema Psych Appearance: grossly normal Office Procedures Post Void Residual Post Residual Void Post Void Residual (PVR): 0 97009-Ygrl Void Residual by ultrasound Results AMB Urinalysis, Automated UA Leukoctes 0 Gerry/uL Last Edit by Sherrie Canales [facility] on 10/01/24 09:08 UA Nitrite Negative Last Edit by Sherrie Canales [facility] on 10/01/24 09:08 UA Urobilinogen 0.2 mg/dL Last Edit by Sherrie Canales [facility] on 10/01/24 09:08 UA Protein 15 mg/dL Last Edit by Sherrie Canales [facility] on 10/01/24 09:08 UA pH 5.0 Last Edit by Sherrie Canales [facility] on 10/01/24 09:08 UA Blood 10 Eliecer/uL Last Edit by Sherrie Canales [facility] on 10/01/24 09:08 UA Specific [place] 1.030 Last Edit by Sherrie Canales [facility] on 10/01/24 09:08 UA Ketone Negative Last Edit by Sherrie Canales [facility] on 10/01/24 09:08 UA Bilirubin 0 mg/dL Last Edit by Sherrie Canales [facility] on 10/01/24 09:08 UA Glucose 0 mg/dL Last Edit by Sherrie Canales [facility] on 10/01/24 09:08 Results Reviewed Results Reviewed: Laboratory Last Values Urine pH (Auto) 5.0 10/01/24 08:59 Specific [place] (Auto) 1.030 10/01/24 08:59 Urine Protein (Auto) 15 mg/dL 10/01/24 08:59 Glucose (UA)(Auto) 0 mg/dL 10/01/24 08:59 Urine Ketones (Auto) Negative 10/01/24 08:59 Urine Blood (Auto) 10 Eliecer/uL 10/01/24 08:59 Urine Nitrite (Auto) Negative 10/01/24 08:59 Urine Bilirubin (Auto) 0 mg/dL 10/01/24 08:59 Urine Urobilinogen (Auto) 0.2 mg/dL 10/01/24 08:59 Leukocyte Esterase (Auto) 0 Gerry/uL 10/01/24 08:59 Assessment & Plan Assessment & Plan (1) Urinary incontinence: Code(s): R32 - Unspecified urinary incontinence Category: Medical Plan Behavioral modification, evaluate further with urodynamics Orders: Orders AMB Post Void Residual by ultrasound Today R32 - Unspecified urinary incontinence AMB Urinalysis Automated Today Z13.9 - Encounter for screening, unspecified Patient Instructions: The patient had an opportunity to ask questions regarding treatment plan. The patient expressed understanding and agreement with the above treatment plan. The patient is aware they should contact our office by phone for worsening of their current condition or the appearance of new symptoms. Compliance is encouraged with any medications and followup testing that is ordered. It is a privilege to be allowed the opportunity to participate in the urologic care of your patient. If you have any questions or concerns regarding treatment for the above conditions please do not hesitate to contact me. The office telephone contact is [phone]. This note is constructed in part using voice recognition software. While every effort has been made to ensure accuracy water quality assistant errors may have been included. Yours sincerely, Salazar Owens MD Coding Level of Care Code New Pt Level 3 (45194) Diagnoses Urinary incontinence R32 CPT Codes Post Residual Void - PVR CPT Code: 48879-Zpmj Void Residual by ultrasound ([id number])
== END 2024-10-01 09:34 | disposition home or self-care (01) ==
PROVIDERS: PCP Internal Medicine; Visit Provider Urology
DX: Z13.9 Encounter for screening, unspecified (principal)

== ENCOUNTER → 2024-10-01 08:44 | Outpatient (BNVA) | payer OTHER, SELFPAY | PROVIDERS: PCP Internal Medicine; Visit Provider Urology | DX: R32 Unspecified urinary incontinence (principal) | CPT/HCPCS: 51798; 81003; 99202 ==

== ENCOUNTER 2024-10-15 12:36 | Outpatient (AMB) | payer OTHER, SELFPAY ==
--- NOTE | 2024-10-15 12:38 | MHC.OFFVIS ---
Intake Visit Reasons: PO- 2m LT knee 06/05/24 Intake Note: Angella is a 59 year old female who presents with complaints of mild intermittent discomfort in her left knee after undergoing left knee arthroscopic surgery on 06/05/2024. She continues with her home stretching program. She does not take any medicines for her discomfort. Allergies oxybutynin [OXYBUTYNIN] Allergy (Severe, Verified 10/15/24 12:48) TACHYCARDIA,FLUSHING,SOB Medication List - Last Reconciled 10/15/24 by Josue Schwartz MD atorvastatin 10 mg PO BEDTIME levothyroxine 88 mcg PO DAILY 30 days topiramate 25 mg PO DAILY PFSH Medical History Skin lesion Incontinence Hypertension Tension headache Trigger middle finger of right hand Thyroid disease Surgical History Hx of tubal ligation Hx of right knee surgery Social History Housing: Apartment Alcohol intake: never Patient Tobacco Use Status: Never used Tobacco e-Cigarette/Vaping Use: Never Used Second Hand Smoke Exposure: No service: No Current occupational status: employed 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 Current occupational exposures/hazards: No Cognitive needs: No Hearing needs: No Vision needs: No Physical Exam Const Other: Well-nourished well-developed very friendly female awake alert and oriented x3 in no acute distress Extrem Other: Bilateral lower extremity examination shows good capillary refill, no skin lesions noted, normal sensation light touch Left knee examination shows that the surgical incisions are well healed, no erythema, minimal crepitus with range of motion, no instability Assessment & Plan Assessment & Plan (1) Left knee pain: Code(s): M25.562 - Pain in left knee Category: Medical Plan Ms. Kumar continues to do well after undergoing left knee arthroscopic surgery on 06/05/2024. She will continue with her home exercise program. She does have residual discomfort due to early degenerative joint disease. At this point the patient's symptoms are tolerable to her. We will hold off on an injection. She will follow up with me on an as-needed basis should her symptoms not plateau at an unacceptable level over the next few months. Feel free to call me at any time should questions regarding her orthopedic management arise. I spent 22 minutes in reviewing the patient's records and imaging studies, seeing the patient and documenting in the medical record. Coding Level of Care Code Est Pt Level 3 (32956) Complex EM visit Add On G2211 Diagnoses Left knee pain M25.562
== END 2024-10-15 12:50 | disposition home or self-care (01) ==
PROVIDERS: PCP Internal Medicine; Visit Provider Orthopaedic Surgery
DX: M25.562 Pain in left knee (principal); S83.242D Other tear of medial meniscus, current injury, left knee, subsequent encounter
CPT/HCPCS: 99213

== ENCOUNTER → 2024-10-15 12:36 | Outpatient (BNVA) | payer OTHER, SELFPAY | PROVIDERS: PCP Internal Medicine; Visit Provider Orthopaedic Surgery | DX: M25.562 Pain in left knee (principal) | CPT/HCPCS: 99212 ==

== ENCOUNTER 2024-11-12 13:31 | Outpatient (AMB) | payer OTHER, SELFPAY ==
--- NOTE | 2024-11-12 13:45 | A.OFFPC_ITS ---
Vital Signs 11/12/24 13:46 Height 5 ft 3 in Weight 177 lb 8 oz BMI 31.4 BP 112/64 Blood Pressure Location Lt brachial Position Sitting Pulse 83 Pulse Source Pulse Oximeter Temp 97.5 F Temp Source Temporal Artery Scan Pulse Oximetry (%) 97 Oxygen Delivery Method Room Air Intake Visit Reasons: 6 mo follow up Intake Note: Patient is here to follow up on Hypothyroidism. Civil Engineering Project Designer Required: No Printing Shop Supervisor: Present Accompanied by: Niece Allergies oxybutynin [OXYBUTYNIN] Allergy (Severe, Verified 11/12/24 14:21) TACHYCARDIA,FLUSHING,SOB Medication List - Last Reconciled 11/12/24 by Gallito Aldana MD atorvastatin 10 mg PO BEDTIME levothyroxine 88 mcg PO DAILY 30 days topiramate 25 mg PO DAILY Tobacco use date assessed: 11/12/24 Dental Screening Dental Screen Date: 11/12/24 Did you have a dental visit in the last 12 months?: No Did you have a dental problem in the last 6 months where you did not have access to dental care?: No Was dental information given to patient?: No [facility] Medical History (Updated 11/12/24 @ 14:22 by Gallito Aldana MD) Skin lesion Incontinence Hypertension Tension headache Trigger middle finger of right hand Thyroid disease Surgical History History of colonoscopy with polypectomy (~06/02/18) History of left knee surgery Hx of tubal ligation Hx of right knee surgery Social History Housing: Apartment Alcohol intake: never Patient Tobacco Use Status: Never used Tobacco e-Cigarette/Vaping Use: Never Used Second Hand Smoke Exposure: No service: No Current occupational status: employed 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rt hand Current occupational exposures/hazards: No Cognitive needs: No Hearing needs: No Vision needs: No Questionnaire PHQ-9 Over the last 2 weeks, how often have you been bothered by any of the following problems? 1. Little interest or pleasure in doing things: not at all 2. Feeling down, depressed, or hopeless: not at all 3. Trouble falling or staying asleep, or sleeping too much: not at all 4. Feeling tired or having little energy: not at all 5. Poor appetite or overeating: not at all 6. Feeling bad about yourself - or that you are a failure or have let yourself or your family down: not at all 7. Trouble concentrating on things, such as reading the newspaper or watching television: not at all 8. Moving or speaking so slowly that other people could have noticed. Or the opposite - being so fidgety or restless that you have been moving around a lot more than usual: not at all 9. Thoughts that you would be better off or of hurting yourself in some way: not at all Total score: 0 Depression Screening Interpretation: Negative Depression Screening Done: Yes Source: Developed by Drs. Good Park, Ligia Arroyo, Jose De Jesus Bahena and colleagues, with an educational terry from [employer]. Thrive Questionnaire Date Thrive assessed: 11/12/24 I am a: Patient What is your living situation today?: I have a steady place to live Within the past 12 months, did the food you bought not last and you didn't have the money to get more?: Never true Within the past 12 months, did you worry whether your food would run out before you got money to buy more?: Never true Do you have trouble paying for medicines?: No Do you have trouble getting transportation to medical appointments?: No Do you have trouble paying your heating and electricity bill?: Yes Do you have trouble taking care of your child, family member or friend?: No Do you have trouble with day-to-day activities such as bathing, preparing meals, shopping, managing finances, etc.?: No Are you currently unemployed and looking for a job?: No Are you interested in more education?: No Currently or been in a relationship where the following occur: No concerns reported THRIVE Score: 1 AUDIT C Alcohol Use Questionnaire (AUDIT-C) 2. How many drinks containing alcohol do you have on a typical day when you are drinking?: 1 or 2 3. How often do you have six or more drinks on one occasion?: Never Total Score: 0 KYLE-7 AMB Questionnaire KYLE-7 Date KYLE - 7 assessed: 11/12/24 Feeling nervous, anxious, or on edge: 0 = Not at all Not being able to stop or control worryin = Not at all Worrying too much about different things: 0 = Not at all Trouble relaxin = Not at all Being so restless that it is hard to sit still: 0 = Not at all Becoming easily annoyed or irritable: 0 = Not at all Feeling afraid as if something awful might happen: 0 = Not at all Total KYLE-7 score (0-4 normal; 5-9 mild; 10-14 moderate; 15-21 severe): 0 Source: Developed by Drs. Good Park, Ligia Arroyo, Jose De Jesus Bahena and colleagues, with an educational terry from [employer]. Physical exam (Primary Care) Vital Signs: Last Vital Signs Temp 97.5 F 11/12/24 13:46 Pulse 83 11/12/24 13:46 BP 112/64 11/12/24 13:46 Pulse Ox 97 11/12/24 13:46 Oxygen Delivery Method Room Air 11/12/24 13:46 BMI result Body Mass Index 31.4 Tobacco/Smoking Status: Tobacco use Status Tobacco use date assessed 11/12/24 11/12/24 13:51 Patient Tobacco Use Status Never used Tobacco 11/12/24 13:51 e-Cigarette/Vaping Use Never Used 11/12/24 13:51 PHQ-9: PHQ-9 Score PHQ-9: Total score 0 11/12/24 13:51 Depression Screening Interpretation: Negative Thrive Assessment: Date of Thrive Assessment Date Thrive assessed 11/12/24 11/12/24 13:51 Currently or been in a relationship where the following occur: No concerns reported Coding Level of Care Code Est Pt Level 4 (77975) Complex EM visit Add On G2211 Diagnoses Generalized anxiety disorder F41.1 Hypothyroidism E03.9 Brain fog R41.89 Hypertension I10 Thyroid disease E07.9 Assessment & Plan Assessment & Plan (1) Generalized anxiety disorder: Code(s): F41.1 - Generalized anxiety disorder Category: Medical Plan: Currently symptoms are stable. On no medications. (2) Hypothyroidism: Code(s): E03.9 - Hypothyroidism, unspecified Category: Medical Plan: Blood work requested. Will call with results and will adjust Thyroid dosage accordingly (3) Brain fog: Code(s): R41.89 - Other symptoms and signs involving cognitive functions and awareness Category: Medical Plan: Condition has resolved. She has been diagnosed with Ocular Miagraines. Taking topiramate on an intermittent basis. Advised her to be regular with medications. (4) Hypertension: Code(s): I10 - Essential (primary) hypertension Category: Medical Plan: BP in range (5) Thyroid disease: Code(s): E07.9 - Disorder of thyroid, unspecified Category: Medical Plan: as above Plan History of Present Illness The patient is a 59-year-old female presenting with headaches and dermatological concerns. She experiences headaches for which she is prescribed Topiramate, using it intermittently rather than on a daily regimen. She sought consultation with a neurologist, who reported normal findings. Additionally, she is concerned about a hyperpigmented skin lesion that has demonstrated growth. Although she was advised to see a plate straightener, her appointment has been moved to May. The patient also reports dry skin, receiving advice to utilize moisturizers as a mitigative measure. She underwent a gynecological assessment with subsequent plans for a more invasive examination due to an abnormal finding, with this appointment slated for May. Social History - No social determinants discussed during the conversation. Review of Systems - Skin: Reports hyperpigmented lesion with growth. - Skin: Reports dry skin. - Neurological: Reports intermittent headaches. Physical Exam General: Cooperative and healthy appearing Nutritional Appearance: Well nourished Orientation/consciousness: Patient oriented x3 Limitations: No limitations Head: Normal to inspection General: Appearance normal, both eyes and all related structures Neck: Normal visual inspection Chest: Normal palpation of entire chest wall Respiratory: Normal respiratory effort Neurology: Patient oriented x3 Results Plan The patient should continue with her current management of using Topiramate on an as-needed basis for headaches. She has upcoming dermatological and gynecological appointments scheduled for May. For her dry skin, regular use of moisturizers is suggested. Blood work is to be conducted fasting. A follow-up appointment is planned in six months to reassess her condition and any emerging concerns. Patient was informed and verbally consented to the use of an ambient scribe for clinic note documentation during this visit. Discussion Notes I discussed with the patient the importance of adhering to her prescribed medication regimen for headaches and attending her scheduled appointments with the plate straightener and electronics design engineer in May. We reviewed the need for using moisturizers to alleviate her dry skin symptoms. I informed her about the blood work to be done fasting and reinforced the importance of these evaluations for her ongoing health management. We agreed to a follow-up in six months or as needed based on changes in her conditions. Patient Instructions - Continue to take Topiramate as needed for headaches. - Attend the dermatological appointment in May for skin evaluation. - Use moisturizers regularly for dry skin. - Fast before undergoing the scheduled blood work. - Follow up in six months unless symptoms change or new issues arise.
[2024-11-12 13:46] VITALS: BP 112/64; PULSE 83; TEMP 36.4; O2SAT 97; BMI 31.4
== END 2024-11-12 14:19 | disposition home or self-care (01) ==
LOC: HO.HMCH 13:31
PROVIDERS: PCP Internal Medicine; Visit Provider Internal Medicine
DX: F41.1 Generalized anxiety disorder (principal); E03.9 Hypothyroidism, unspecified; R41.89 Other symptoms and signs involving cognitive functions and awareness; I10 Essential (primary) hypertension; E07.9 Disorder of thyroid, unspecified

== ENCOUNTER → 2024-11-12 13:31 | Outpatient (BNVA) | payer OTHER, SELFPAY | PROVIDERS: PCP Internal Medicine; Visit Provider Internal Medicine | DX: F41.1 Generalized anxiety disorder (principal); E03.9 Hypothyroidism, unspecified; R41.89 Other symptoms and signs involving cognitive functions and awareness; R07.9 Chest pain, unspecified; I10 Essential (primary) hypertension | CPT/HCPCS: 99212 ==

== ENCOUNTER 2025-01-07 14:19 | Outpatient (AMB) | payer OTHER, SELFPAY ==
--- NOTE | 2025-01-07 15:01 | MHC.OFFVIS ---
Intake Visit Reasons: UroD Allergies oxybutynin [OXYBUTYNIN] Allergy (Severe, Verified 11/12/24 14:21) TACHYCARDIA,FLUSHING,SOB HPI Comments Details: Angella is here for urodynamics. The patient has complaints of urinary incontinence. Interpretation: During the filling phase there was normal sensation, sensory urgency was noted, strong desire was noted at 105 mL. Bladder capacity was less than average, the patient felt that they were at capacity at mL and voided mL. Leakage was during cough. Findings consistent with less than average functional bladder capacity, and sensory urgency, Although leakage was noted with cough it is unclear if there was associated cough induced detrusor overactivity EMG- Appropriate changes in the waveforms were noted through out the study. . 10/01/24--Angella is here for evaluation in complains of urinary incontinence. She reports that she is leaking all the time with coughing as well as at other times. She denies irritative voiding symptoms. She has had 4 vaginal deliveries all less than 9 lb and denies any issues with delivery. Urinalysis is within normal limits I have discussed behavioral modification timed voiding every 2-3 hours and avoid dietary bladder irritants. I have discussed further evaluation with urodynamics. [facility] Medical History (Updated 11/12/24 @ 14:22 by Gallito Aldana MD) Skin lesion Incontinence Hypertension Tension headache Trigger middle finger of right hand Thyroid disease Surgical History History of colonoscopy with polypectomy (~06/02/18) History of left knee surgery Hx of tubal ligation Hx of right knee surgery Social History Housing: Apartment Alcohol intake: never Patient Tobacco Use Status: Never used Tobacco e-Cigarette/Vaping Use: Never Used Second Hand Smoke Exposure: No service: No Current occupational status: employed 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rt hand Current occupational exposures/hazards: No Cognitive needs: No Hearing needs: No Vision needs: No Office Procedures Urodynamic Studies Consent Discussed risk and benefit or proposed procedure with the patient. Information consent for procedure given to the patient. Discussed technical aspects, risks, benefits and alternatives in full. Addressed all of the patient's questions and concerns regarding the procedure. The patient demonstrated knowledge and understanding. They wish to proceed with this procedure. Preparation The patient was prepped in the usual manner. A manager medical was present and in the room. Genitalia was prepped with betadine solution in a sterile manner. Procedure Complex Uroflow Complex uroflow performed by: Salazar Owens Maximum urinary flow rate (mL/second): 6.1 Voiding time (seconds): 534 Voided volume (mL): 20 Residual urine (mL): 5 Cystometrogram ? Vaginal/rectal catheter type: Vaginal First sensation at (mL): 34 mL First desire at (mL): 78 mL Strong desire to void occurred at (mL): 105 mL Strong desire detrusor pressure (cm H2O): 1.6 Maximum Capacity (mL): 142 mL Voiding Summary Voided with max detrusor pressure of (cm H2O): 50 Maximum flow rate (mL/second): 22 mL/s Voided volume (mL): ? 145 Calculated PVR: 0 mL Stress Testing Stress Test at 108 mL: Absent leak with Valsalva, Present leak with cough DO Dry: Absent DO Wet: Absent Patient reported urgency throughout the whole test with no DO activity. Prep: The patient was prepped in the usual manner. A manager medical was present and in the room. Genitalia was prepped with betadine solution in a sterile manner. 20389-Suzfbupkovfply w/ RUBBER ROLLER GRINDER OPERATOR 56855-Nsfwmmu-Fgqtiqyeutah 26919-Xcsa/Urinary Muscle Study 52602-Skudb-Vayhtlnem Pressure Test Procedure code (CPT) selection complete Office Meds nitrofurantoin monohydrate/macrocrystals 100 mg capsule Performing Provider: Salazar Owens MD Performing Location[facility] [place] Administered by: Argelia Lam RN on 01/07/25 15:01 Dose Route Admin Location Dispensed Lot Number Expiration Date NDC Commercial Carpet Installer 100 mg PO 1 cap Results AMB Urinalysis, Automated UA Leukoctes 0 Gerry/uL Last Edit by Argelia Lam RN on 01/07/25 15:08 UA Nitrite Negative Last Edit by Argelia Lam RN on 01/07/25 15:08 UA Urobilinogen 1 mg/dL Last Edit by Argelia Lam RN on 01/07/25 15:08 UA Protein 0 mg/dL Last Edit by Argelia Lam RN on 01/07/25 15:08 UA pH 6.0 Last Edit by Argelia Lam RN on 01/07/25 15:08 UA Blood 0 Eliecer/uL Last Edit by Argelia Lam RN on 01/07/25 15:08 UA Specific [place] 1.02 Last Edit by Argelia Lam RN on 01/07/25 15:08 UA Ketone Negative Last Edit by Argelia Lam RN on 01/07/25 15:08 UA Bilirubin 0 mg/dL Last Edit by Argelia Lam RN on 01/07/25 15:08 UA Glucose 0 mg/dL Last Edit by Argelia Lam RN on 01/07/25 15:08 Results Reviewed Results Reviewed: Laboratory Last Values Urine pH (Auto) 6.0 01/07/25 15:01 Specific [place] (Auto) 1.02 01/07/25 15:01 Urine Protein (Auto) 0 mg/dL 01/07/25 15:01 Glucose (UA)(Auto) 0 mg/dL 01/07/25 15:01 Urine Ketones (Auto) Negative 01/07/25 15:01 Urine Blood (Auto) 0 Eliecer/uL 01/07/25 15:01 Urine Nitrite (Auto) Negative 01/07/25 15:01 Urine Bilirubin (Auto) 0 mg/dL 01/07/25 15:01 Urine Urobilinogen (Auto) 1 mg/dL 01/07/25 15:01 Leukocyte Esterase (Auto) 0 Gerry/uL 01/07/25 15:01 Assessment & Plan Assessment & Plan Orders: Orders AMB Urodynamics Studies Today R32 - Unspecified urinary incontinence AMB Urinalysis Automated Today Z13.9 - Encounter for screening, unspecified Coding CPT Codes Urodynamic Studies - CPT: 02695-Cahzzikbjxakik w/ RUBBER ROLLER GRINDER OPERATOR ([id number]) Urodynamic Studies - CPT: 03606-Tkfcgkr-Dzmieknfnmtq ([id number]) Urodynamic Studies - CPT: 47451-Zvxf/Urinary Muscle Study ([id number]) Urodynamic Studies - CPT: 25828-Agvnv-Djmviuhyk Pressure Test ([id number])
== END 2025-01-07 16:17 | disposition home or self-care (01) ==
LOC: HO.HUSH 14:19
PROVIDERS: PCP Internal Medicine; Visit Provider Urology
DX: Z13.9 Encounter for screening, unspecified (principal); R32 Unspecified urinary incontinence
CPT/HCPCS: 51728; 51741; 51784; 51797

== ENCOUNTER → 2025-01-07 14:19 | Outpatient (BNVA) | payer OTHER, SELFPAY | PROVIDERS: PCP Internal Medicine; Visit Provider Urology | DX: R32 Unspecified urinary incontinence (principal) | CPT/HCPCS: 51728; 51741; 51784; 51797; 81003 ==

== ENCOUNTER 2025-02-09 12:59 | Outpatient (AMB) | payer OTHER, SELFPAY ==
--- NOTE | 2025-02-09 13:08 | MHC.OFFVIS ---
Vital Signs 02/09/25 13:11 Height 5 ft 3 in Weight 177 lb BMI 31.4 BP 120/72 Intake Visit Reasons: Cervical lesion Finished Hardware Erector Required: No Information Interpreted: non-clinical & clinical Bilingual Customer Service Specialist: Bilingual Customer Service Specialist Present ([place]) Accompanied by: Daughter Allergies oxybutynin [OXYBUTYNIN] Allergy (Severe, Verified 02/09/25 13:12) TACHYCARDIA,FLUSHING,SOB Post menopausal: Yes HPI Comments Details: Presenting referred from Trisha Pacheco CNM regarding cervical lesion identified on the pelvic exam. The patient has no complaints no vaginal bleeding or pain or any other concerns. Last co testing in 08/25 was negative PFSH Medical History Skin lesion Incontinence Hypertension Tension headache Trigger middle finger of right hand Thyroid disease Surgical History History of colonoscopy with polypectomy (~06/02/18) History of left knee surgery Hx of tubal ligation Hx of right knee surgery Family History (Updated 02/09/25 @ 13:14 by Tammie Miller CMA) Father Diabetes Heart disease Heart attack HTN (hypertension) Brother Heart disease Heart attack Social History (Updated 02/09/25 @ 13:15 by Tammie Miller CMA) Household Members: Family Housing: House Alcohol intake: never Patient Tobacco Use Status: Never used Tobacco e-Cigarette/Vaping Use: Never Used Second Hand Smoke Exposure: No service: No Current occupational status: employed 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rt hand Current occupational exposures/hazards: No Sexually active: No Sexual orientation: Straight/Heterosexual Gender identity: Female Cognitive needs: No Hearing needs: No Vision needs: No Female Reproductive History Menstrual Menopause type: natural Total pregnancies: 4 Full term: 4 Number of Living Children: 4 Review of Systems Const All systems reviewed & are unremarkable except as noted in HPI and below Physical Exam Vital Signs: BMI result Body Mass Index 31.4 General: Yes no CVA tenderness External Female Exam: normal external appearance and normal appearance of the urethra Speculum Exam - Vagina: normal appearance of the vagina, normal palpation, no lesions and no masses Speculum Exam - Cervix: normal appearance of the cervix, normal palpation, no lesions, no masses, nontender and Other cervical findings present (Cervical cervical lesion) Bimanual exam- vagina & uterus: normal bimanual exam, normal palpation, uterine size normal, normal palpation, uterine shape normal, No Cervical tenderness present and non-tender Bimanual Exam- Adnexa, other: normal adnexae Back/Spine/Pelvis Back: no CVA tenderness Office Procedures ONLINE COMMUNITY MANAGER Biopsy Colposcopy: Pre-Procedure Counseling: Before beginning the procedure, I conducted comprehensive counseling with the patient. We thoroughly discussed the procedure itself, including its details, alternatives, and all associated risks. This included but not limited to the following complications such as bleeding, infection, and injury to the vagina, bladder, and vessels, as well as the potential need for transfusion with all its associated risks. Subsequently, the patient sign the consent. Pap smear result: Negative co testing Procedure: During the procedure, the following steps were performed: A speculum was inserted, and acetic acid was applied. Cervical biopsies were obtained from the 9+ 12+ 1+ 6 o'clock position Hemostasis was achieved using Monsel solution, and the patient tolerated the procedure well. Post-Procedure Instructions: The patient was advised to promptly contact the office or the after hours answering service or go to the emergency room if experiencing a temperature exceeding 100.4?F, abdominal pain, nausea/vomiting, or bleeding. Additionally, the patient was instructed to abstain from vaginal intercourse and bathtub use. The patient confirmed understanding of these instructions. Discharge Instructions: The patient was instructed to schedule a follow-up appointment in 2 weeks for further evaluation and management. Please note that this note was generated using a voice recognition program, and errors may have occurred during research professor of biostatistics. 84111-Rpfzlh of Cervix Procedure code (CPT) selection complete Assessment & Plan Assessment & Plan (1) Lesion of cervix: Code(s): N88.9 - Noninflammatory disorder of cervix uteri, unspecified Category: Medical Plan: Discussed with the patient the finding on pelvic exam showing a circular cervical lesion, biopsy done, see procedure note. Orders: Orders AMB ONLINE COMMUNITY MANAGER Biopsy Today N88.9 - Noninflammatory disorder of cervix uteri, unspecified Coding Level of Care Code Procedure Only Diagnoses Lesion of cervix N88.9 CPT Codes ONLINE COMMUNITY MANAGER Biopsy - CPT: 82602-Egqbph of Cervix ([id number])
[2025-02-09 13:11] VITALS: BP 120/72; BMI 31.4
== END 2025-02-09 13:49 | disposition home or self-care (01) ==
LOC: HO.HWS 12:59
PROVIDERS: PCP Internal Medicine; Visit Provider Obstetrics & Gynecology
DX: N88.9 Noninflammatory disorder of cervix uteri, unspecified (principal)
CPT/HCPCS: 57500

== ENCOUNTER 2025-02-09 12:59 | Outpatient (REF) | payer OTHER, SELFPAY | END 2025-02-09 13:00 | disposition home or self-care (01) | LOC: HO.LNP 12:59 | PROVIDERS: PCP Internal Medicine; Visit Provider Obstetrics & Gynecology | DX: N88.9 Noninflammatory disorder of cervix uteri, unspecified (principal) | CPT/HCPCS: 57500; 88305 ==

== ENCOUNTER 2025-03-10 13:19 | Outpatient (AMB) | payer OTHER, SELFPAY ==
[2025-03-10 13:23] VITALS: BMI 31.4
--- NOTE | 2025-03-10 13:23 | A.OFFVIS_ITS ---
Vital Signs 03/10/25 13:23 Height 5 ft 3 in Weight 177 lb BMI 31.4 Intake Visit Reasons: biopsy results Adjunct Communications Faculty Member Required: No Information Interpreted: non-clinical & clinical Accompanied by: Daughter Allergies oxybutynin (OXYBUTYNIN) Allergy (Severe, Verified 03/10/25 13:25) TACHYCARDIA,FLUSHING,SOB HPI Comments Details: Presenting post cervical biopsies for cervical lesion for follow-up. The patient is doing well with no complaints. The pathology showed the following: A. Cervix, 1:00, biopsy: Benign endocervical/nabothian cyst and benign squamous epithelium with inflammation and reactive changes; negative for dysplasia. B. Cervix, 6:00, biopsy: Benign small endocervical cysts and benign squamous epithelium with inflammation and reactive changes; negative for dysplasia. C. Cervix, 9:00, biopsy: Benign small endocervical cysts and benign squamous epithelium with inflammation and reactive changes; negative for dysplasia. D. Cervix, 11:00, biopsy: Benign endocervical/nabothian cyst and benign endocervical mucosa; negative for dysplasia. Comment: The patient's previous negative Pap test ([id number]) concurs with the current biopsy Last co testing in 08/25 was negative PFSH Medical History Skin lesion Incontinence Hypertension Tension headache Trigger middle finger of right hand Thyroid disease Surgical History History of colonoscopy with polypectomy (~06/02/18) History of left knee surgery Hx of tubal ligation Hx of right knee surgery Family History Father Diabetes Heart disease Heart attack HTN (hypertension) Brother Heart disease Heart attack Social History Household Members: Family Housing: House Alcohol intake: never Patient Tobacco Use Status: Never used Tobacco e-Cigarette/Vaping Use: Never Used Second Hand Smoke Exposure: No service: No Current occupational status: employed 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rt hand Current occupational exposures/hazards: No Sexual orientation: Straight/Heterosexual Gender identity: Female Cognitive needs: No Hearing needs: No Vision needs: No Review of Systems Const All systems reviewed & are unremarkable except as noted in HPI and below Reports as per HPI and Reports no additional complaints GI Reports no additional complaints Reports no additional complaints Physical Exam Vital Signs: BMI result Body Mass Index 31.4 Assessment & Plan Assessment & Plan (1) Lesion of cervix: Code(s): N88.9 - Noninflammatory disorder of cervix uteri, unspecified Category: Medical Plan: Discussed with the patient the pathology results of the cervical biopsies & endocervical curettage. Discussed with the patient the sensitivity specificity, positive and negative predictive value in detecting cervical cancer in addition discussed the regression, persistence and progression rates. Recommended to schedule an annual exam. All questions answered the patient verbalized understanding. Coding Level of Care Code Est Pt Level 3 (80680) Diagnoses Lesion of cervix N88.9
--- OUTSIDE RECORDS SUMMARY | 2025-03-10 14:10 | XMS_ITS | Patient Health Record ---
Author Organization [facility] Address [address] [place] [address] Care Team Providers Care Transportation Aid Name Role Phone Flori Mejia Primary Care Provider Chaim Eugene Jr Unavailable Reason For Referral No Information Medications Medication SIG (Take, Route, Frequency, Duration) Notes Start Date End Date Status Levothyroxine Sodium 88 MCG TAKE ONE TAB LET BY MOUTH EVERY DAY Oral for 30 Active Colyte with Flavor Packs 240 GM As directed Orally Over the specified time. for 1 day(s) Active Ibuprofen 800 MG TAKE ONE TABLET THRE E TIMES DAILY Oral for 30 Active Social History Tobacco Use: Social History Observation Description Date Details (start date - stop date) Never Smoker NA - NA Tobacco Use/Smoking Question Answer Notes Patient is a nonsmoker Alcohol Screen Question Answer Notes Did you have a drink containing alcohol in the p ast year? No Points 0 Interpretation Negative Problems Problem Type SNOMED Code ICD Code Onset Dates Problem Status W/U Status Risk Notes Problem [id number] Colon cancer screening (Z12.11) Active confirmed Plan Of Treatment Future Test Test Name Order Date COLONOSCOPY 06/26/2017 Insurance Providers Payer Name Payer Address Payer Phone Subscriber Number Group Number Insured Name Patient Relationship to Insured Coverage Start Date Coverage End Date [facility] [address] [place] [address] [id number] JUDSON BETANCOURT Self - patient is the insured Medical (General) History Medical History History ICD Code Denies [place],DM,CVA,Lung disease,renal dise ase Hypothyroidism kidney stones- last attack march 2012 Surgical History Surgery Date(Month/Year) knee surgery 2016 tubal ligation
== END 2025-03-10 13:31 | disposition home or self-care (01) ==
LOC: HO.HWS 13:19
PROVIDERS: PCP Internal Medicine; Visit Provider Obstetrics & Gynecology
DX: N88.9 Noninflammatory disorder of cervix uteri, unspecified (principal)
CPT/HCPCS: 99213

== ENCOUNTER → 2025-03-10 13:19 | Outpatient (BNVA) | payer OTHER, SELFPAY | PROVIDERS: PCP Internal Medicine; Visit Provider Obstetrics & Gynecology | DX: Z71.2 Person consulting for explanation of examination or test findings (principal); N88.9 Noninflammatory disorder of cervix uteri, unspecified | CPT/HCPCS: 99212 ==

== ENCOUNTER 2025-03-11 13:55 | Outpatient (AMB) | payer OTHER, SELFPAY ==
--- NOTE | 2025-03-10 22:08 | A.OFFVIS_ITS ---
Intake Visit Reasons: 2M follow up/ Med Review Intake Note: Patient presents today via telehealth for 2m follow up/med review Urology Medication: None Antibiotic Allergies: None Blood Thinners: None Allergies oxybutynin (OXYBUTYNIN) Allergy (Severe, Verified 03/11/25 14:01) TACHYCARDIA,FLUSHING,SOB Medication List - Last Reconciled 03/11/25 by Salazar Owens MD atorvastatin 10 mg PO BEDTIME levothyroxine 88 mcg PO DAILY 30 days solifenacin (Vesicare) 10 mg PO DAILY topiramate 25 mg PO DAILY HPI Comments Details: 03/11/25--LV 01/07/25 -- UDS-- c/w detrusor overactivity--started on vesicare 10 mg daily History of Present Illness - The patient is a 59-year-old female presenting with a follow-up for overactive bladder management. - Overactive bladder symptoms were initially identified following urodynamic testing on January 07, 2025. - The patient was prescribed Vesicare 10 mg daily to manage symptoms. - The patient reported partial improvement in symptoms while on medication, with reduced urinary leakage. - The medication was noted to have three refills, but the patient did not continue due to unawareness of the refills. - Bladder spasms were identified as the underlying cause of symptoms, and Vesicare was prescribed to alleviate these spasms. Results - Urodynamic testing conducted on January 07, 2025, Detrusor Overactivity Plan - Continue Vesicare 10 mg daily for overactive bladder management. [facility] Medical History Skin lesion Incontinence Hypertension Tension headache Trigger middle finger of right hand Thyroid disease Surgical History History of colonoscopy with polypectomy (~06/02/18) History of left knee surgery Hx of tubal ligation Hx of right knee surgery Family History Father Diabetes Heart disease Heart attack HTN (hypertension) Brother Heart disease Heart attack Social History Household Members: Family Housing: House Alcohol intake: never Patient Tobacco Use Status: Never used Tobacco e-Cigarette/Vaping Use: Never Used Second Hand Smoke Exposure: No service: No Current occupational status: employed 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rt hand Current occupational exposures/hazards: No Sexual orientation: Straight/Heterosexual Gender identity: Female Cognitive needs: No Hearing needs: No Vision needs: No Review of Systems Const All systems reviewed & are unremarkable except as noted in HPI and below Reports no additional complaints Eyes Reports no additional complaints ENT Reports no additional complaints Card Reports no additional complaints Resp Reports no additional complaints GI Reports no additional complaints Reports as per HPI Musc Reports no additional complaints Skin/Breast Reports system reviewed and no additional complaints, except as documented Neuro Reports no additional complaints Psych Reports no additional complaints Endo Reports no additional complaints Ilan/Lymph Reports no additional complaints Aller/Immun Reports no additional complaints Telehealth Telehealth Telehealth Platform: Telephone Location of provider rendering services: practice address Location of patient: address on file Patient Identification confirmed using: Name, : Yes Telehealth method: voice only Patient verbally consented to treatment: Yes Patient verbally consented to billing insurance company: Yes Patient informed of any privacy concerns related to visit: Yes Minutes spent on Phone/Video with Pt.: 13 Assessment & Plan Assessment & Plan (1) OAB (overactive bladder): Code(s): N32.81 - Overactive bladder Category: Medical (2) Mixed stress and urge urinary incontinence: Code(s): N39.46 - Mixed incontinence Category: Medical Plan Plan - Continue Vesicare 10 mg daily for overactive bladder management. - Ensure patient is aware of the three available refills for Vesicare. - Schedule a follow-up appointment in six months to assess the effectiveness of the treatment. Patient Instructions: The patient had an opportunity to ask questions regarding treatment plan. The patient expressed understanding and agreement with the above treatment plan. The patient is aware they should contact our office by phone for worsening of their current condition or the appearance of new symptoms. Compliance is encouraged with any medications and followup testing that is ordered. It is a privilege to be allowed the opportunity to participate in the urologic care of your patient. If you have any questions or concerns regarding treatment for the above conditions please do not hesitate to contact me. The office telephone contact is [phone]. This note is constructed in part using voice recognition software. While every effort has been made to ensure accuracy ground defence officer errors may have been included. Yours sincerely, Salazar Owens MD Scribe Plan - Not visible on output: Patient was informed and verbally consented to the use of an ambient scribe for clinic note documentation during this visit. Coding Level of Care Code Tele Est Pt Level 3 (84567) Diagnoses OAB (overactive bladder) N32.81 Mixed stress and urge urinary incontinence N39.46
--- OUTSIDE RECORDS SUMMARY | 2025-03-11 14:00 | XMS_ITS | Patient Health Record ---
Author Organization [facility] Address [address] [place] [address] Care Team Providers Care Knotting Machine Operator Name Role Phone Flori Mejia Primary Care [...] Problem Status W/U Status Risk Notes Problem [id number] Colon cancer screening (Z12.11) Active confirmed Plan Of Treatment Future Test Test Name Order Date COLONOSCOPY 06/26/2017 Insurance Providers Payer Name Payer Address Payer Phone Subscriber Number Group Number Insured Name Patient Relationship to Insured Coverage Start Date Coverage End Date [facility] [address] [place] [address] [id number] JUDSON BETANCOURT Self - patient is the insured Medical (General) History Medical History History ICD Code Denies [place],DM,CVA,Lung disease,renal dise ase Hypothyroidism kidney stones- last attack march 2012 Surgical History Surgery Date(Month/Year) knee surgery 2016 tubal ligation
== END 2025-03-11 15:51 | disposition home or self-care (01) ==
LOC: HO.HUSH 13:56
PROVIDERS: PCP Internal Medicine; Visit Provider Urology
DX: N32.81 Overactive bladder (principal); N39.46 Mixed incontinence
CPT/HCPCS: 99213